=== PATIENT | female | born 1945 | race Caucasian/White ===

== ENCOUNTER 2018-06-30 09:55 | Observation (INO) | payer MEDICARE, OTHER ==
[2018-06-30] MEDS ORDERED: Sodium Chloride 0.9% 1,000 ML IV STA (10:28)
[2018-06-30] MEDS ORDERED: Sodium Chloride 0.9% 1,000 ML ONE (10:39)
[2018-06-30 10:57] LABS: BASO # 0.1 K/uL (0.0-0.2); BASO % 1.1 % (0.0-2.0); EOS # 0.7 K/uL (0.0-0.7); EOS % 13.5 % (0.0-4.0); HEMOGLOBIN 13.7 g/dL (11.0-16.0); LYMPH # 1.2 K/uL (1.0-4.3); LYMPH % 22.5 % (20.0-40.0); MEAN CELL VOLUME 91.9 fL (81.0-99.0); MEAN CORPUSCULAR HEMOGLOBIN 31.4 pg (27.0-31.0); MEAN CORPUSCULAR HGB CONC 34.2 g/dL (33.0-37.0); MEAN PLATELET VOLUME 9.1 fL (7.2-11.7); MONO # 0.4 K/uL (0.0-0.8); NEUT # 2.9 K/uL (1.8-7.0); NEUT % 55.9 % (50.0-75.0); RBC 4.37 Mil/uL (3.80-5.20); RED CELL DISTRIBUTION WIDTH 12.8 % (11.5-14.5); SQUAMOUS EPITHIAL 6 /hpf (0-5); URINE BACTERIA RARE (<OCC); URINE BILIRUBIN NEGATIVE (NEGATIVE); URINE BLOOD 1+ (NEGATIVE); URINE CLARITY Hazy (Clear); URINE COLOR Yellow (YELLOW); URINE GLUCOSE (UA) 3+ mg/dL (Normal); URINE LEUKOCYTE ESTERASE NEG Leu/uL (Negative); URINE PROTEIN 1+ mg/dL (NEGATIVE); URINE UROBILINOGEN NORMAL mg/dL (0.2-1.0); WHITE BLOOD COUNT 5.1 K/uL (4.8-10.8)
[2018-06-30 11:01] LABS: PROTHROMBIN TIME 10.7 SECONDS (9.7-12.2)
[2018-06-30 11:04] LABS: ALB/GLOB RATIO 1.3 (1.0-2.1); ALBUMIN 4.4 g/dL (3.5-5.0); ALT/SGPT 22 U/L (9-52); AST/SGOT 14 U/L (14-36); BLOOD UREA NITROGEN 10 mg/dL (7-17); CALCIUM 8.6 mg/dl (8.6-10.4); GFR NON-AFRICAN AMERICAN > 60; LIPASE 47 U/L (23-300)
[2018-06-30] MEDS ORDERED: Iodixanol 320 mg/ml 150 ml Bottle IV ONE (11:36)
--- NOTE | 2018-06-30 12:37 | C.PDOC ---
History Of Present Illness 72 y/o female presents to ED for evaluation of abdominal pain, nausea, vomiting , and constipation for the last 3 days. Denies fever, chills, urinary symptoms, back pain, or any other associated symptoms at this time. Time Seen by Provider: 06/30/18 10:02 Chief Complaint (Nursing): Abdominal Pain History Per: Patient History/Exam Limitations: no limitations Onset/Duration Of Symptoms: Days Current Symptoms Are (Timing): Still Present Location Of Pain/Discomfort: Diffuse Radiation Of Pain To:: None Quality Of Discomfort: "Pain" Associated Symptoms: Nausea, Vomiting, Constipation. denies: Diarrhea, Loss Of Appetite, Back Pain, Urinary Symptoms Exacerbating Factors: None Alleviating Factors: None Recent travel outside of the [place]: No Additional History Per: Patient Past Medical History Reviewed: Historical Data, Nursing Documentation, Vital Signs Vital Signs: Last Vital Signs Temp 99.0 F 06/30/18 15:50 Pulse 76 06/30/18 15:50 Resp 20 06/30/18 15:50 BP 140/71 06/30/18 15:50 Pulse Ox 99 06/30/18 18:27 - Medical History PMH: Anxiety, Depression, Diabetes (type II), HTN, Hypercholesterolemia Surgical History: Cholecystectomy Family History: States: Unknown Family Hx - Social History Hx Tobacco Use: No Hx Alcohol Use: No Hx Substance Use: No - Immunization History Hx Influenza Vaccination: Yes Hx Pneumococcal Vaccination: Yes Review Of Systems Except As Marked, All Systems Reviewed And Found Negative. Constitutional: Negative for: Fever, Chills Gastrointestinal: Positive for: Nausea, Vomiting, Abdominal Pain, Constipation. Negative for: Diarrhea, Hematemesis Genitourinary: Negative for: Dysuria, Frequency, Hematuria Musculoskeletal: Negative for: Back Pain Physical Exam - Physical Exam Appears: Non-toxic, Other (uncomfortable) Skin: Normal Color, Warm, Dry Head: Atraumatic, Normacephalic Eye(s): bilateral: Normal Inspection, Other (tearful) Oral Mucosa: Moist Cardiovascular: Rhythm Regular Respiratory: Normal Breath Sounds, No Rales, No Rhonchi, No Wheezing Gastrointestinal/Abdominal: Soft, Tenderness (diffuse), No Guarding, No Rebound , No Other (no active vomiting) Back: No CVA Tenderness Extremity: Normal ROM Neurological/Psych: Oriented x3, Normal Speech ED Course And Treatment - Laboratory Results Result Diagrams: 06/30/18 10:43 06/30/18 10:43 O2 Sat by Pulse Oximetry: 99 (RA) Pulse Ox Interpretation: Normal - CT Scan/US Abd & Pelvis CT Other Rad Studies (CT/US): Read By Radiologist, Radiology Report Reviewed CT/US Interpretation: FINDINGS: LOWER THORAX: Heart size within range of normal. No significant pericardial effusion. Small hiatal hernia. Mild passive/ dependent type atelectasis both posterior lower lung marie. There also appears to be some linear scarring in the left lung base including the lingular region and probably in the middle lobe as well. Lung bases otherwise clear without focal consolidation. LIVER: Unremarkable. No gross lesion or ductal dilatation. No obvious hepatic mass or collection seen on this noncontrast study. GALLBLADDER AND BILE DUCTS: Cholecystectomy. PANCREAS: Pancreas appears slightly atrophic and fatty replaced. No pancreatic masses collections or calcifications. SPLEEN: Spleen exhibits normal size and attenuation pattern without mass collection or calcification. ADRENALS: No adrenal lesions. KIDNEYS AND URETERS: Kidneys demonstrate symmetric nephrograms. No evidence of nephrolithiasis or hydronephrosis. BLADDER: Urinary bladder incompletely distended however there is a small amount of contrast material opacifying the urinary bladder. REPRODUCTIVE: Unremarkable. APPENDIX: See Bowel section below . BOWEL: Stomach is distended with air. There are multiple minimally distended air-filled loops of small bowel however no evidence of acute mechanical small bowel obstruction. Status post subtotal colectomy with apparent resection of the transverse and descending as well as sigmoid colon. . Anastomosis again seen in the rectal region. There is a large amount of stool seen at and just distal to the anastomosis consistent with fecal retention/constipation. PERITONEUM: Unremarkable. No fluid collection. No free air. Tiny fat containing umbilical hernia. LYMPH NODES: Unremarkable. No enlarged lymph nodes. VASCULATURE: Unremarkable. No aortic aneurysm. BONES: Multilevel degenerative spondylosis of the lower thoracic and lumbar spine. There are no acute compression fractures no retropulsed fragments. Mild dextroscoliosis centered in the upper lumbar region. OTHER FINDINGS: None. IMPRESSION: Cholecystectomy. There are multiple minimally distended air-filled loops of small bowel however no evidence of acute mechanical small bowel obstruction. Status post subtotal colectomy with apparent resection of the transverse and descending as well as sigmoid colon. . Anastomosis again seen in the rectal region. There is a large amount of stool seen at and just distal to the anastomosis consistent with fecal retention /constipation. Progress Note: While in CT room patient had a syncopal episode. Rapid respond was called. CT didn't show any acute abnormalities, but positive for constipation. Case was d/w Hospitalist director of instruction and patient was accepted to Tele for observation. Medical Decision Making Medical Decision Making: Plan: Blood work Urinalysis Abd & Pelvis CT Toradol Protonix Zofran IV fluids Progress note: On re-eval, pt states pain persists, no relief from Toradol. She requests more pain medication. Notes she does not have true allergy to Morphine, she only felt anxious when taking Morphine previously. Morphine 2mg ordered. Patient had witnessed syncopal episode while in CT room. Labs reviewed. Disposition - Disposition Disposition: HOSPITALIZED Disposition Time: 14:04 Condition: FAIR - Clinical Impression Clinical Impression: Abdominal pain, Constipation, Vomiting, Syncope - PA / PHOTOGRAPHIC RESTORER / Resident Statement MD/DO has reviewed & agrees with the documentation as recorded. - Scribe Statement The provider has reviewed the documentation as recorded by the Scribe KP All medical record entries made by the Scribe were at my direction and personally dictated by me. I have reviewed the chart and agree that the record accurately reflects my personal performance of the history, physical exam, medical decision making, and the department course for this patient. I have also personally directed, reviewed, and agree with the discharge instructions and disposition. Decision To Admit - Pt Status Changed To: Hospital Disposition Of: Observation - . Bed Request Type: Telemetry Admitting Physician: Rena Razo Patient Diagnosis: Abdominal pain, Constipation, Vomiting, Syncope
--- NOTE | 2018-06-30 13:17 | CT ---
Date of service: 06/30/2018 PROCEDURE: CT abdomen pelvis. HISTORY: Abdominal pain, vomiting COMPARISON: Comparison made with prior study 06/06/2016. The TECHNIQUE: Contiguous axial images of the abdomen and pelvis effectively performed without oral or intravenous contrast material reformats generated. . Note that technologist indicates the patient and anxiety and/or contrast reaction, shortly following injection of approximately 20 cc of Visipaque 320 contrast material. Study was terminated patient was stabilized and re-scanned without further injection or complication. Radiation dose: Total exam DLP = 204.3 mGy-cm. This CT exam was performed using one or more of the following dose reduction techniques: Automated exposure control, adjustment of the mA and/or kV according to patient size, and/or use of iterative reconstruction technique.. FINDINGS: LOWER THORAX: Heart size within range of normal. No significant pericardial effusion. Small hiatal hernia. Mild passive/dependent type atelectasis both posterior lower lung marie. There also appears to be some linear scarring in the left lung base including the lingular region and probably in the middle lobe as well. Lung bases otherwise clear without focal consolidation LIVER: Unremarkable. No gross lesion or ductal dilatation. No obvious hepatic mass or collection seen on this noncontrast study. GALLBLADDER AND BILE DUCTS: Cholecystectomy. PANCREAS: Pancreas appears slightly atrophic and fatty replaced. No pancreatic masses collections or calcifications. SPLEEN: Spleen exhibits normal size and attenuation pattern without mass collection or calcification. ADRENALS: No adrenal lesions. KIDNEYS AND URETERS: Kidneys demonstrate symmetric nephrograms. No evidence of nephrolithiasis or hydronephrosis. BLADDER: Urinary bladder incompletely distended however there is a small amount of contrast material opacifying the urinary bladder. REPRODUCTIVE: Unremarkable. APPENDIX: See Bowel section below . BOWEL: Stomach is distended with air. There are multiple minimally distended air-filled loops of small bowel however no evidence of acute mechanical small bowel obstruction. Status post subtotal colectomy with apparent resection of the transverse and descending as well as sigmoid colon. . Anastomosis again seen in the rectal region. There is a large amount of stool seen at and just distal to the anastomosis consistent with fecal retention/constipation. PERITONEUM: Unremarkable. No fluid collection. No free air. Tiny fat containing umbilical hernia. LYMPH NODES: Unremarkable. No enlarged lymph nodes. VASCULATURE: Unremarkable. No aortic aneurysm. BONES: Multilevel degenerative spondylosis of the lower thoracic and lumbar spine. There are no acute compression fractures no retropulsed fragments. Mild dextroscoliosis centered in the upper lumbar region. OTHER FINDINGS: None. IMPRESSION: Cholecystectomy There are multiple minimally distended air-filled loops of small bowel however no evidence of acute mechanical small bowel obstruction. Status post subtotal colectomy with apparent resection of the transverse and descending as well as sigmoid colon. . Anastomosis again seen in the rectal region. There is a large amount of stool seen at and just distal to the anastomosis consistent with fecal retention/constipation.
[2018-06-30] MEDS ORDERED: Glucagon Recombinant 1 mg Inj IM PRN (14:04)
[2018-06-30] MEDS ORDERED: Dextrose 50% SYRINGE Inj (50 ml) IV PRN (14:04)
[2018-06-30 14:09] LABS: CK-MB 1.16 ng/mL (0.0-3.38)
--- NOTE | 2018-06-30 15:04 | PCM.RRT ---
<Sharee Braxton - Last Filed: 06/30/18 18:47> INDEPENDENT BEAUTY CONSULTANT Nurses Assessment - Situation Date: 06/30/18 Time INDEPENDENT BEAUTY CONSULTANT was called: 16:24 INDEPENDENT BEAUTY CONSULTANT Responder Arrival Time:: 16:25 INDEPENDENT BEAUTY CONSULTANT Location:: [facility] [employer]Y CONSULTANT Reason for Call: Change in Mental Status (syncope) INDEPENDENT BEAUTY CONSULTANT Called By: Other Disciplines (marine propulsion technician) - Neurological Status (Select all that apply): Alert, Responsive, Oriented, Verbal, Follows Commands - Constitutional Appears: No Acute Distress, Unkempt, Older Than Stated Age - Head Head Exam: ATRAUMATIC, NORMAL INSPECTION - Eyes Eye Exam: EOMI, Normal appearance - Respiratory Exam Respiratory Exam: Clear to Ausculation Bilateral, NORMAL BREATHING PATTERN - Cardiovascular Exam Cardiovascular Exam: REGULAR RHYTHM, +S1, +S2 - GI/Abdominal Exam GI & Abdominal Exam: Soft, Tenderness (LLQ tenderness), Normal Bowel Sounds. absent: Guarding - Neurological Exam Neurological Exam: Alert, Awake, Oriented x3 Plan - Assessment of Findings&Treatment Plan INDEPENDENT BEAUTY CONSULTANT was called for AMS. During the abdominal/pelvic catscan patient seemed to have a syncope event per marine propulsion technician as patient. B/P 171/92. Upon arrival patient was awake, alert, oriented x3. Patient stated she usually gets anxious. Patient also stated she continued to have pain in the left lower quadrant. After patient's evaluation, the CT continued. Patient was further evaluated by the ER and was admitted to the hospitalist service for syncope and LLQ pain. <Rena Razo - Last Filed: 06/30/18 21:43> [employer]Y CONSULTANT Nurses Assessment - Vital Signs Vital Signs: Rapid Response Vital Sign Blood Pressure 171/92 Attending/Attestation - Attestation I have personally seen and examined this patient.: Yes I have fully participated in the care of the patient.: Yes I have reviewed all pertinent clinical information, including history, physical exam and plan: Yes
--- NOTE | 2018-06-30 15:05 | CP.PCM.HP ---
<BraxtonShareeCoral - Last Filed: 06/30/18 19:51> History of Present Illness - History of Present Illness History of Present Illness: CC: "abdominal pain" HPI: 72 year old female with past medical history of bowel resection and diabetes presents to the ER for abdominal pain. Patient states the pain started about 3 days ago in her LLQ and it is constant. She states she has not had a bowel movement for the past 3 days. She denies radiation of the pain but states it is severe and nothing makes the pain better or worse. She states she feels nauseated and has vomited. She also states she fell about [address] She states she felt unsteady on her feet and fell and hit her knee. She stated a lady on the street helped her up but she did not seek medical care at the time. She denies chest pain, shortness of breath, difficulty breathing, headache, diarrhea, fever or chills. PMD: Dr. Ashley - patient states she has not seen her PMD in years Past Medical History: Diabetes Past Surgical History: bowel resection at [facility] 2017 (patient states she does not know why she underwent that surgery); cholecystectomy Medications: Novolog 10units; Levemir 15 units HS - patient states her she gets her medications from her PMD Allergies: Morphine - she states the medication is strong Family history: Mom - unknown cancer Social History: Lives with daughter (per nurse patient states she lives with a friend); denies alcohol, smoking or illicit drug use. Present on Admission - Present on Admission Any Indicators Present on Admission: No Review of Systems - Constitutional Constitutional: Chills, Fever. absent: Night Sweats, Weight Gain, Weight Loss - EENT Eyes: absent: Blurred Vision - Cardiovascular Cardiovascular: Syncope. absent: Chest Pain, Dyspnea, Leg Edema, Lightheadedness, Palpitations - Respiratory Respiratory: absent: Dyspnea - Gastrointestinal Gastrointestinal: Constipation. absent: Diarrhea, Nausea, Vomiting - Genitourinary Genitourinary: absent: Dysuria - Musculoskeletal Musculoskeletal: Arthralgias. absent: Numbness, Tingling - Neurological Neurological: Dizziness Past Patient History - Past Social History Smoking Status: Never Smoked - CARDIAC Hx Hypercholesterolemia: Yes Hx Hypertension: Yes - ENDOCRINE/METABOLIC Hx Endocrine Disorders: Yes Hx Diabetes Mellitus Type 2: Yes - PSYCHIATRIC Hx Anxiety: Yes Hx Depression: Yes Hx Substance Use: No - SURGICAL HISTORY Hx Cholecystectomy: Yes - ANESTHESIA Hx Anesthesia: Yes Hx Anesthesia Reactions: No Hx Malignant Hyperthermia: No Meds Allergies/Adverse Reactions: Allergies Allergy/AdvReac Type Severity Reaction Status Date / Time morphine AdvReac RASH Verified 07/28/16 14:12 Physical Exam - Constitutional Appears: In Acute Distress, Unkempt, Older Than Stated Age - Head Exam Head Exam: ATRAUMATIC, NORMAL INSPECTION - Eye Exam Eye Exam: EOMI, Normal appearance, PERRL Pupil Exam: NORMAL ACCOMODATION - ENT Exam ENT Exam: Mucous Membranes Dry - Respiratory Exam Respiratory Exam: Clear to Auscultation Bilateral, NORMAL BREATHING PATTERN - Cardiovascular Exam Cardiovascular Exam: REGULAR RHYTHM, +S1, +S2 - GI/Abdominal Exam GI & Abdominal Exam: Normal Bowel Sounds, Soft, Tenderness (LLQ tenderness). absent: Distended, Firm, Guarding - Extremities Exam Extremities exam: Positive for: normal inspection. Negative for: joint swelling , pedal edema, tenderness - Neurological Exam Neurological exam: Alert, CN II-XII Intact, Oriented x3 - Expanded Neurological Exam Expanded Patient oriented to: person, place, time Neuro motor strength exam: Left Upper Extremity: 5, Right Upper Extremity: 5, Left Lower Extremity: 5, Right Lower Extremity: 5 Coma Scale Eye Opening: SPONTANEOUS Coma Scale Motor Response: OBEYS COMMANDS - Psychiatric Exam Psychiatric exam: Anxious - Skin Skin Exam: Normal Color Results - Vital Signs Recent Vital Signs: Last Vital Signs Temp 98.5 F 06/30/18 09:57 Pulse 64 06/30/18 12:50 Resp 24 06/30/18 12:50 BP 120/81 06/30/18 12:50 Pulse Ox 99 06/30/18 14:32 - Labs Result Diagrams: 06/30/18 10:43 06/30/18 10:43 Labs: Laboratory Results - last 24 hr 06/30/18 06/30/18 06/30/18 10:43 10:43 10:43 WBC 5.1 D RBC 4.37 Hgb 13.7 Hct 40.2 MCV 91.9 MCH 31.4 H MCHC 34.2 RDW 12.8 Plt Count 335 MPV 9.1 Neut % (Auto) 55.9 Lymph % (Auto) 22.5 [place] % (Auto) 7.0 Eos % (Auto) 13.5 H Baso % (Auto) 1.1 Neut # (Auto) 2.9 Lymph # (Auto) 1.2 [place] # (Auto) 0.4 Eos # (Auto) 0.7 Baso # (Auto) 0.1 PT 10.7 INR 1.0 APTT 26 Sodium Potassium Chloride Carbon Dioxide Anion Gap BUN Creatinine Est GFR ( Amer) Est GFR (Non-Af Amer) Random Glucose Lactic Acid Calcium Total Bilirubin AST ALT Alkaline Phosphatase Total Creatine Kinase CK-MB (Mass) Troponin I Total Protein Albumin Globulin Albumin/Globulin Ratio Lipase Urine Color Yellow Urine Clarity Hazy Urine pH 5.0 Ur Specific [place] 1.038 H Urine Protein 1+ H Urine Glucose (UA) 3+ H Urine Ketones 1+ H Urine Blood 1+ H Urine Nitrate Negative Urine Bilirubin Negative Urine Urobilinogen Normal Ur Leukocyte Esterase Neg Urine WBC (Auto) 1 Urine RBC (Auto) 1 Ur Squamous Epith Cells 6 H Urine Bacteria Rare 06/30/18 06/30/18 10:43 10:47 WBC RBC Hgb Hct MCV MCH MCHC RDW Plt Count MPV Neut % (Auto) Lymph % (Auto) [place] % (Auto) Eos % (Auto) Baso % (Auto) Neut # (Auto) Lymph # (Auto) [place] # (Auto) Eos # (Auto) Baso # (Auto) PT INR APTT Sodium 138 Potassium 3.6 Chloride 99 Carbon Dioxide 26 Anion Gap 17 BUN 10 Creatinine 0.5 L Est GFR ( Amer) > 60 Est GFR (Non-Af Amer) > 60 Random Glucose 270 H Lactic Acid 0.9 Calcium 8.6 Total Bilirubin 0.6 AST 14 ALT 22 Alkaline Phosphatase 61 Total Creatine Kinase 94 CK-MB (Mass) 1.16 Troponin I < 0.0120 Total Protein 7.7 Albumin 4.4 Globulin 3.3 Albumin/Globulin Ratio 1.3 Lipase 47 Urine Color Urine Clarity Urine pH Ur Specific [place] Urine Protein Urine Glucose (UA) Urine Ketones Urine Blood Urine Nitrate Urine Bilirubin Urine Urobilinogen Ur Leukocyte Esterase Urine WBC (Auto) Urine RBC (Auto) Ur Squamous Epith Cells Urine Bacteria Assessment & Plan - Assessment and Plan (Free Text) Assessment: History of Syncope - NIH Score 0 - Neurology Consult: Dr. Garcia --> help appreciated - WEED COOKING OPERATOR was called on this patient for syncope while patient was in CT - Neuro check q4h - Images * Head CT: Slightly limited motion degraded study. Chronic appearing white matter and basal nuclei ischemic changes. Note that the possibility of a hyperacute infarct not excluded. Clinical correlation recommended. Moderate generalized volume loss. No acute intracranial hemorrhage. * f/u Brain MRI * f/u ECHO * f/u carotid doppler - f/u UDS - ELMER negative; EKG NSR - f/u ELMER x2 LLQ abdominal pain secondary to constipation - General Surgery Consult: Dr. Osorio --> help appreciated - GI Dr. Adorno Consult --> help appreciated - Fleet enema given/Miralax - small bowel movement - Clear Liquid diet as tolerated - Images: * Abd/Pelvis CT: Cholecystectomy. There are multiple minimally distended air- filled loops of small bowel however no evidence of acute mechanical small bowel obstruction. Status post subtotal colectomy with apparent resection of the transverse and descending as well as sigmoid colon. . Anastomosis again seen in the rectal region. There is a large amount of stool seen at and just distal to the anastomosis consistent with fecal retention/constipation. * Catscan was interrupted because the patient had syncopal event as she states she begins to feel anxious * Surgery was completed at [facility] 2017 (will need to get records) History of Diabetes - ISS - low - Accuchecks - Hypoglycemia Protocol - Lisinopril 2.5mg po daily - f/u hA1c, lipid panel, tsh, free t4 Prophylaxis - SCDs - Fall Risk - Physical Therapy - Case Management Case discussed with Dr. Dung Braxton PGY-2 <Rena Razo - Last Filed: 06/30/18 21:48> Results - Vital Signs Recent Vital Signs: Last Vital Signs Temp 99.0 F 06/30/18 15:50 Pulse 76 06/30/18 15:50 Resp 20 06/30/18 15:50 BP 140/71 06/30/18 15:50 Pulse Ox 99 06/30/18 18:29 - Labs Result Diagrams: 06/30/18 10:43 06/30/18 10:43 Labs: Laboratory Results - last 24 hr 06/30/18 06/30/18 06/30/18 10:43 10:43 10:43 WBC 5.1 D RBC 4.37 Hgb 13.7 Hct 40.2 MCV 91.9 MCH 31.4 H MCHC 34.2 RDW 12.8 Plt Count 335 MPV 9.1 Neut % (Auto) 55.9 Lymph % (Auto) 22.5 [place] % (Auto) 7.0 Eos % (Auto) 13.5 H Baso % (Auto) 1.1 Neut # (Auto) 2.9 Lymph # (Auto) 1.2 [place] # (Auto) 0.4 Eos # (Auto) 0.7 Baso # (Auto) 0.1 PT 10.7 INR 1.0 APTT 26 Sodium Potassium Chloride Carbon Dioxide Anion Gap BUN Creatinine Est GFR ( Amer) Est GFR (Non-Af Amer) Random Glucose Lactic Acid Calcium Total Bilirubin AST ALT Alkaline Phosphatase Total Creatine Kinase CK-MB (Mass) Troponin I Total Protein Albumin Globulin Albumin/Globulin Ratio Lipase Urine Color Yellow Urine Clarity Hazy Urine pH 5.0 Ur Specific [place] 1.038 H Urine Protein 1+ H Urine Glucose (UA) 3+ H Urine Ketones 1+ H Urine Blood 1+ H Urine Nitrate Negative Urine Bilirubin Negative Urine Urobilinogen Normal Ur Leukocyte Esterase Neg Urine WBC (Auto) 1 Urine RBC (Auto) 1 Ur Squamous Epith Cells 6 H Urine Bacteria Rare Urine Opiates Screen Urine Methadone Screen Ur Barbiturates Screen Ur Phencyclidine Scrn Ur Amphetamines Screen U Benzodiazepines Scrn U Oth Cocaine Metabols U Cannabinoids Screen 06/30/18 06/30/18 06/30/18 10:43 10:47 16:52 WBC RBC Hgb Hct MCV MCH MCHC RDW Plt Count MPV Neut % (Auto) Lymph % (Auto) [place] % (Auto) Eos % (Auto) Baso % (Auto) Neut # (Auto) Lymph # (Auto) [place] # (Auto) Eos # (Auto) Baso # (Auto) PT INR APTT Sodium 138 Potassium 3.6 Chloride 99 Carbon Dioxide 26 Anion Gap 17 BUN 10 Creatinine 0.5 L Est GFR ( Amer) > 60 Est GFR (Non-Af Amer) > 60 Random Glucose 270 H Lactic Acid 0.9 Calcium 8.6 Total Bilirubin 0.6 AST 14 ALT 22 Alkaline Phosphatase 61 Total Creatine Kinase 94 84 CK-MB (Mass) 1.16 1.49 Troponin I < 0.0120 < 0.0120 Total Protein 7.7 Albumin 4.4 Globulin 3.3 Albumin/Globulin Ratio 1.3 Lipase 47 Urine Color Urine Clarity Urine pH Ur Specific [place] Urine Protein Urine Glucose (UA) Urine Ketones Urine Blood Urine Nitrate Urine Bilirubin Urine Urobilinogen Ur Leukocyte Esterase Urine WBC (Auto) Urine RBC (Auto) Ur Squamous Epith Cells Urine Bacteria Urine Opiates Screen Urine Methadone Screen Ur Barbiturates Screen Ur Phencyclidine Scrn Ur Amphetamines Screen U Benzodiazepines Scrn U Oth Cocaine Metabols U Cannabinoids Screen 06/30/18 17:33 WBC RBC Hgb Hct MCV MCH MCHC RDW Plt Count MPV Neut % (Auto) Lymph % (Auto) [place] % (Auto) Eos % (Auto) Baso % (Auto) Neut # (Auto) Lymph # (Auto) [place] # (Auto) Eos # (Auto) Baso # (Auto) PT INR APTT Sodium Potassium Chloride Carbon Dioxide Anion Gap BUN Creatinine Est GFR ( Amer) Est GFR (Non-Af Amer) Random Glucose Lactic Acid Calcium Total Bilirubin AST ALT Alkaline Phosphatase Total Creatine Kinase CK-MB (Mass) Troponin I Total Protein Albumin Globulin Albumin/Globulin Ratio Lipase Urine Color Urine Clarity Urine pH Ur Specific [place] Urine Protein Urine Glucose (UA) Urine Ketones Urine Blood Urine Nitrate Urine Bilirubin Urine Urobilinogen Ur Leukocyte Esterase Urine WBC (Auto) Urine RBC (Auto) Ur Squamous Epith Cells Urine Bacteria Urine Opiates Screen Positive H Urine Methadone Screen Negative Ur Barbiturates Screen Negative Ur Phencyclidine Scrn Negative Ur Amphetamines Screen Negative U Benzodiazepines Scrn Negative U Oth Cocaine Metabols Positive H U Cannabinoids Screen Negative Attending/Attestation - Attestation I have personally seen and examined this patient.: Yes I have fully participated in the care of the patient.: Yes I have reviewed all pertinent clinical information: Yes Notes (Text): Seen and examined with the resident Patient is complaining of abdominal pain,s/p syncope. As per pt history of recent syncope . Not worked up as an out pt. We will order work up. patient has history of colectomy.CT shows constipation.No Obstruction,has pain and tenderness .We will get surgery and GI consult Assessment and the plan discussed with the resident
--- NOTE | 2018-06-30 16:25 | CT ---
Date of service: 06/30/2018 PROCEDURE: CT HEAD WITHOUT CONTRAST. HISTORY: Dizziness COMPARISON: None available. TECHNIQUE: Axial computed tomography images were obtained through the head/brain without intravenous contrast. Radiation dose: Total exam DLP = 830.12 mGy-cm. This CT exam was performed using one or more of the following dose reduction techniques: Automated exposure control, adjustment of the mA and/or kV according to patient size, and/or use of iterative reconstruction technique. FINDINGS: Study is limited by motion artifact HEMORRHAGE: No acute parenchymal subarachnoid nor extra-axial hemorrhage. BRAIN: Mild diffuse/ confluent chronic periventricular white matter ischemic changes seen extending peripherally into the deep and subcortical white matter both cerebral hemispheres with the changes become more patchy in appearance. . There is a discrete area of low attenuation left anterolateral basal ganglia which is consistent with an age indeterminate infarct. Minor chronic appearing subinsular ischemic changes are also felt to be present bilaterally. Clinical correlation recommended. There also 2 discrete rounded low-attenuation foci at inferior margin left basal ganglia that may represent dilated perivascular spaces versus chronic lacunar type infarcts No obvious parenchymal nor extra-axial mass or collection seen on this noncontrast exam. Moderate generalized volume loss. Vascular calcifications both carotid siphons. VENTRICLES: No obstructive hydrocephalus. CALVARIUM: Calvarium intact. PARANASAL SINUSES: Minimal mucosal thickening seen within a few ethmoid air cells. MASTOID AIR CELLS: Unremarkable as visualized. No inflammatory changes. OTHER FINDINGS: None. IMPRESSION: Slightly limited motion degraded study. Chronic appearing white matter and basal nuclei ischemic changes. Note that the possibility of a hyperacute infarct not excluded. Clinical correlation recommended. Moderate generalized volume loss. No acute intracranial hemorrhage.
[2018-06-30] MEDS: (Novolin R) Insulin Human Regular 100 units/ml vial SC SCH ×2 (17:47→21:27)
[2018-06-30 18:11] LABS: BARBITURATES, UR NEGATIVE (NEGATIVE); BENZODIAZEPINES, UR NEGATIVE (NEGATIVE); PHENCYCLIDINE, UR NEGATIVE (NEGATIVE)
[2018-06-30 18:26] LABS: OPIATES, UR POSITIVE (NEGATIVE)
[2018-06-30 18:51] LABS: CK-MB 1.49 ng/mL (0.0-3.38)
--- NOTE | 2018-06-30 18:57 | CP.PCM.CON ---
History of Present Illness - History of Present Illness History of Present Illness: General surgery consult note for Dr. Paddy Doran, PGY-2 Pt S & E at bedside at 1840 72F w/PSH sig for subtotal colectomy due to "intestines" consulted for LLQ abdominal pain x 3 days. Pain is constant, non radiating, severe. No inciting, alleviating or aggravating factors. Admits to no BM x 2 days, last BM was small /hard, tenesmus, nausea, emesis x "multiple times" (nb, nb-clear liquid), poor appetite. Denies F & C, changes in urinary habits, FLORES, dizziness, CP, SOB, sore throat, cough, other complaints. CT scan of ab w/Cholecystectomy, multiple minimally distended air-filled loops of small bowel however no evidence of acute mechanical small bowel obstruction. Status post subtotal colectomy with apparent resection of the transverse and descending as well as sigmoid colon. Anastomosis again seen in the rectal region. There is a large amount of stool seen at and just distal to the anastomosis consistent with fecal retention/constipation. CT scan aborted 2/2 DIRECTOR OF CATERING for anxiety during exam. Afebrile, no leukocytosis. UDS positive for cocaine. PMH: DM, HTN, HLD, anxiety, depression PSH: Subtotal colectomy (2017, [facility] [place]) w/colonscopy, cholecystectomy All: Morphine (itching) SH: Denies ETOH, tobacco or illicit drug use Review of Systems - Review of Systems All systems: reviewed and no additional remarkable complaints except - Constitutional Constitutional: absent: Chills, Fever, Headache - EENT Eyes: absent: Change in Vision Ears: absent: Dizziness Nose/Mouth/Throat: absent: Sore Throat - Cardiovascular Cardiovascular: Palpitations. absent: Chest Pain - Respiratory Respiratory: absent: Cough - Gastrointestinal Gastrointestinal: Abdominal Pain, Change in Bowel Habits, Constipation, Nausea, Vomiting. absent: Hematemesis, Hematochezia, Melena - Genitourinary Genitourinary: absent: Change in Urinary Stream, Hematuria - Musculoskeletal Musculoskeletal: absent: Numbness, Tingling - Neurological Neurological: absent: Headaches - Psychiatric Psychiatric: Change in Appetite (decreased) Past Patient History - Past Social History Smoking Status: Never Smoked - CARDIAC Hx Hypercholesterolemia: Yes Hx Hypertension: Yes - ENDOCRINE/METABOLIC Hx Endocrine Disorders: Yes Hx Diabetes Mellitus Type 2: Yes - PSYCHIATRIC Hx Anxiety: Yes Hx Depression: Yes Hx Substance Use: No - SURGICAL HISTORY Hx Cholecystectomy: Yes - ANESTHESIA Hx Anesthesia: Yes Hx Anesthesia Reactions: No Hx Malignant Hyperthermia: No Meds Allergies/Adverse Reactions: Allergies Allergy/AdvReac Type Severity Reaction Status Date / Time morphine AdvReac RASH Verified 07/28/16 14:12 - Medications Medications: Current Medications Dextrose (Dextrose 50% Inj) 0 ml IV STAT PRN; Protocol PRN Reason: Hypoglycemia Protocol Dextrose (Glutose 15) 0 gm PO ONCE PRN; Protocol PRN Reason: Hypoglycemia Protocol Glucagon (Glucagen Diagnostic Kit) 0 mg IM STAT PRN; Protocol PRN Reason: Hypoglycemia Protocol Dextrose (Dextrose 5% In Water 1000 Ml) 1,000 mls @ 0 mls/hr IV .Q0M PRN; Protocol; Per Protocol PRN Reason: Hypoglycemia Protocol Insulin Human Regular (Novolin R) 0 unit SC ACHS ALMA PRN Reason: Protocol Last Admin: 06/30/18 17:47 Dose: Not Given Lisinopril (Zestril) 2.5 mg PO DAILY ALMA Polyethylene Glycol (Miralax) 17 gm PO DAILY ALMA Physical Exam - Constitutional Appears: Non-toxic, No Acute Distress - Head Exam Head Exam: ATRAUMATIC, NORMAL INSPECTION, NORMOCEPHALIC - Eye Exam Eye Exam: EOMI, Normal appearance - ENT Exam ENT Exam: Mucous Membranes Moist, Normal Exam - Neck Exam Neck exam: Positive for: Full Rom, Normal Inspection - Respiratory Exam Respiratory Exam: Clear to Auscultation Bilateral, NORMAL BREATHING PATTERN. absent: Chest Wall Tenderness, Rales, Rhonchi, Wheezes - Cardiovascular Exam Cardiovascular Exam: REGULAR RHYTHM, +S1, +S2 - GI/Abdominal Exam GI & Abdominal Exam: Hyperactive Bowel Sounds, Soft, Tenderness (LLQ). absent: Distended, Firm, Hernia Additional comments: well healed midline incision from umbilicus to suprapubic area - Rectal Exam Rectal Exam: absent: Bloody Stool, Hemorrhoids, Fecal Impaction, NORMAL INSPECTION (tender upon PADMINI) - Extremities Exam Extremities exam: Positive for: normal inspection - Neurological Exam Neurological exam: Alert, CN II-XII Intact, Oriented x3 - Psychiatric Exam Psychiatric exam: Normal Affect, Normal Mood - Skin Skin Exam: Dry, Intact, Normal Color, Warm Results - Vital Signs Recent Vital Signs: Last Vital Signs Temp 99.0 F 06/30/18 15:50 Pulse 76 06/30/18 15:50 Resp 20 06/30/18 15:50 BP 140/71 06/30/18 15:50 Pulse Ox 99 06/30/18 18:29 - Labs Result Diagrams: 06/30/18 10:43 06/30/18 10:43 Labs: Laboratory Results - last 24 hr 06/30/18 06/30/18 06/30/18 10:43 10:43 10:43 WBC 5.1 D RBC 4.37 Hgb 13.7 Hct 40.2 MCV 91.9 MCH 31.4 H MCHC 34.2 RDW 12.8 Plt Count 335 MPV 9.1 Neut % (Auto) 55.9 Lymph % (Auto) 22.5 [place] % (Auto) 7.0 Eos % (Auto) 13.5 H Baso % (Auto) 1.1 Neut # (Auto) 2.9 Lymph # (Auto) 1.2 Mineral # (Auto) 0.4 Eos # (Auto) 0.7 Baso # (Auto) 0.1 PT 10.7 INR 1.0 APTT 26 Sodium Potassium Chloride Carbon Dioxide Anion Gap BUN Creatinine Est GFR ( Amer) Est GFR (Non-Af Amer) Random Glucose Lactic Acid Calcium Total Bilirubin AST ALT Alkaline Phosphatase Total Creatine Kinase CK-MB (Mass) Troponin I Total Protein Albumin Globulin Albumin/Globulin Ratio Lipase Urine Color Yellow Urine Clarity Hazy Urine pH 5.0 Ur Specific [place] 1.038 H Urine Protein 1+ H Urine Glucose (UA) 3+ H Urine Ketones 1+ H Urine Blood 1+ H Urine Nitrate Negative Urine Bilirubin Negative Urine Urobilinogen Normal Ur Leukocyte Esterase Neg Urine WBC (Auto) 1 Urine RBC (Auto) 1 Ur Squamous Epith Cells 6 H Urine Bacteria Rare Urine Opiates Screen Urine Methadone Screen Ur Barbiturates Screen Ur Phencyclidine Scrn Ur Amphetamines Screen U Benzodiazepines Scrn U Oth Cocaine Metabols U Cannabinoids Screen 06/30/18 06/30/18 06/30/18 10:43 10:47 16:52 WBC RBC Hgb Hct MCV MCH MCHC RDW Plt Count MPV Neut % (Auto) Lymph % (Auto) [place] % (Auto) Eos % (Auto) Baso % (Auto) Neut # (Auto) Lymph # (Auto) [place] # (Auto) Eos # (Auto) Baso # (Auto) PT INR APTT Sodium 138 Potassium 3.6 Chloride 99 Carbon Dioxide 26 Anion Gap 17 BUN 10 Creatinine 0.5 L Est GFR ( Amer) > 60 Est GFR (Non-Af Amer) > 60 Random Glucose 270 H Lactic Acid 0.9 Calcium 8.6 Total Bilirubin 0.6 AST 14 ALT 22 Alkaline Phosphatase 61 Total Creatine Kinase 94 84 CK-MB (Mass) 1.16 1.49 Troponin I < 0.0120 < 0.0120 Total Protein 7.7 Albumin 4.4 Globulin 3.3 Albumin/Globulin Ratio 1.3 Lipase 47 Urine Color Urine Clarity Urine pH Ur Specific [place] Urine Protein Urine Glucose (UA) Urine Ketones Urine Blood Urine Nitrate Urine Bilirubin Urine Urobilinogen Ur Leukocyte Esterase Urine WBC (Auto) Urine RBC (Auto) Ur Squamous Epith Cells Urine Bacteria Urine Opiates Screen Urine Methadone Screen Ur Barbiturates Screen Ur Phencyclidine Scrn Ur Amphetamines Screen U Benzodiazepines Scrn U Oth Cocaine Metabols U Cannabinoids Screen 06/30/18 17:33 WBC RBC Hgb Hct MCV MCH MCHC RDW Plt Count MPV Neut % (Auto) Lymph % (Auto) [place] % (Auto) Eos % (Auto) Baso % (Auto) Neut # (Auto) Lymph # (Auto) [place] # (Auto) Eos # (Auto) Baso # (Auto) PT INR APTT Sodium Potassium Chloride Carbon Dioxide Anion Gap BUN Creatinine Est GFR ( Amer) Est GFR (Non-Af Amer) Random Glucose Lactic Acid Calcium Total Bilirubin AST ALT Alkaline Phosphatase Total Creatine Kinase CK-MB (Mass) Troponin I Total Protein Albumin Globulin Albumin/Globulin Ratio Lipase Urine Color Urine Clarity Urine pH Ur Specific [place] Urine Protein Urine Glucose (UA) Urine Ketones Urine Blood Urine Nitrate Urine Bilirubin Urine Urobilinogen Ur Leukocyte Esterase Urine WBC (Auto) Urine RBC (Auto) Ur Squamous Epith Cells Urine Bacteria Urine Opiates Screen Positive H Urine Methadone Screen Negative Ur Barbiturates Screen Negative Ur Phencyclidine Scrn Negative Ur Amphetamines Screen Negative U Benzodiazepines Scrn Negative U Oth Cocaine Metabols Positive H U Cannabinoids Screen Negative Assessment & Plan - Assessment and Plan (Free Text) Assessment: 72F w/LLQ ab pain Plan: NPO Enema Dulcolax Colace Monitor for bowel function Pain control PRN Anti-emetic IVF Serial ab exams DW Dr. Devon Doran, PGY-2 - Date & Time Date: 06/30/18 Time: 18:59
[2018-06-30] MEDS ORDERED: Magnesium Hydroxide Susp 30 ml UD PO ONE (19:03)
[2018-06-30] MEDS: Sodium Chloride 0.9% 1,000 ML IV SCH (22:13)
[2018-06-30 23:09] LABS: CK-MB 1.64 ng/mL (0.0-3.38)
[2018-07-01] MEDS: Sodium Chloride 0.9% 1,000 ML IV SCH ×4 (03:00→22:49)
[2018-07-01 06:51] LABS: EOS # 0.7 K/uL (0.0-0.7); EOS % 15.6 % (0.0-4.0); HEMOGLOBIN 12.8 g/dL (11.0-16.0); LYMPH # 1.3 K/uL (1.0-4.3); LYMPH % 28.4 % (20.0-40.0); MEAN CELL VOLUME 92.5 fL (81.0-99.0); MEAN CORPUSCULAR HEMOGLOBIN 32.5 pg (27.0-31.0); MEAN CORPUSCULAR HGB CONC 35.2 g/dL (33.0-37.0); MEAN PLATELET VOLUME 8.6 fL (7.2-11.7); MONO # 0.3 K/uL (0.0-0.8); MONO % 7.6 % (0.0-10.0); NEUT # 2.2 K/uL (1.8-7.0); NEUT % 47.4 % (50.0-75.0); NRBC % 0.1 % (0.0-2.0); RBC 3.92 Mil/uL (3.80-5.20); RED CELL DISTRIBUTION WIDTH 12.7 % (11.5-14.5); WHITE BLOOD COUNT 4.6 K/uL (4.8-10.8)
[2018-07-01 07:16] LABS: ALB/GLOB RATIO 1.3 (1.0-2.1); ALBUMIN 3.6 g/dL (3.5-5.0); ALT/SGPT 29 U/L (9-52); AST/SGOT 17 U/L (14-36); BLOOD UREA NITROGEN 13 mg/dL (7-17); CALCIUM 8.6 mg/dl (8.6-10.4); GFR NON-AFRICAN AMERICAN > 60; HDL CHOLESTEROL 78 mg/dL (30-70)
[2018-07-01 07:23] LABS: LDL CHOLESTEROL 92 mg/dL (0-129)
[2018-07-01] MEDS: (Novolin R) Insulin Human Regular 100 units/ml vial SC SCH ×4 (07:58→22:00)
--- NOTE | 2018-07-01 08:01 | CP.PCM.PN ---
Subjective - Date & Time of Evaluation Date of Evaluation: 07/01/18 Time of Evaluation: 07:59 - Subjective Subjective: General surgery progress note for Dr. Paddy Doran, PGY-2 Pt S & E at bedside at 0710 Pt reports BM x 3 since yesterday, abdominal pain resolved. Passing flatus. Denies N & V, F & C, other complaints. Objective - Vital Signs/Intake and Output Vital Signs (last 24 hours): Temp Pulse Resp BP Pulse Ox 98.3 F 68 20 144/64 96 07/01/18 07:00 07/01/18 07:00 07/01/18 07:00 07/01/18 07:00 07/01/18 07:00 Intake and Output: 07/01/18 07/01/18 06:59 18:59 Intake Total 640 Balance 640 - Medications Medications: Current Medications Dextrose (Dextrose 50% Inj) 0 ml IV STAT PRN; Protocol PRN Reason: Hypoglycemia Protocol Dextrose (Glutose 15) 0 gm PO ONCE PRN; Protocol PRN Reason: Hypoglycemia Protocol Docusate Sodium (Colace) 100 mg PO TID [facility] Glucagon (Glucagen Diagnostic Kit) 0 mg IM STAT PRN; Protocol PRN Reason: Hypoglycemia Protocol Dextrose (Dextrose 5% In Water 1000 Ml) 1,000 mls @ 0 mls/hr IV .Q0M PRN; Protocol; Per Protocol PRN Reason: Hypoglycemia Protocol Sodium Chloride (Sodium Chloride 0.9%) 1,000 mls @ 80 mls/hr IV .[id number] [facility] Last Admin: 07/01/18 03:00 Dose: 80 mls/hr Insulin Human Regular (Novolin R) 0 unit SC ACHS [facility] PRN Reason: Protocol Last Admin: 07/01/18 07:58 Dose: Not Given Ketorolac Tromethamine (Toradol) 15 mg IVP Q6 PRN PRN Reason: Pain, severe (8-10) Last Admin: 06/30/18 19:11 Dose: 15 mg Lisinopril (Zestril) 2.5 mg PO DAILY [facility] Ondansetron HCl (Zofran Inj) 4 mg IVP Q6 PRN PRN Reason: Nausea/Vomiting Polyethylene Glycol (Miralax) 17 gm PO DAILY [facility] - Labs Labs: 07/01/18 06:34 07/01/18 06:34 PT 10.7 SECONDS (9.7-12.2) 06/30/18 10:43 INR 1.0 06/30/18 10:43 APTT 26 SECONDS (21-34) 06/30/18 10:43 - Constitutional Appears: Non-toxic, No Acute Distress - Head Exam Head Exam: ATRAUMATIC, NORMAL INSPECTION, NORMOCEPHALIC - Eye Exam Eye Exam: EOMI, Normal appearance - ENT Exam ENT Exam: Mucous Membranes Moist, Normal Exam - Neck Exam Neck Exam: Full ROM, Normal Inspection - Respiratory Exam Respiratory Exam: NORMAL BREATHING PATTERN - Cardiovascular Exam Cardiovascular Exam: REGULAR RHYTHM, +S1, +S2 - GI/Abdominal Exam GI & Abdominal Exam: Soft. absent: Distended, Firm, Guarding, Rigid, Tenderness , Rebound Additional comments: well healed midline abdominal scar - Neurological Exam Neurological Exam: Alert, CN II-XII Intact, Oriented x3. absent: Awake ( arousable to verbal stimuli) - Psychiatric Exam Psychiatric exam: Normal Affect, Normal Mood - Skin Skin Exam: Dry, Intact, Normal Color, Warm Assessment and Plan - Assessment and Plan (Free Text) Assessment: 72F w/LLQ ab pain- resolved after BMs Plan: Continue bowel regimen No surgical intervention needed Further mgmt as per primary team Please re-consult as needed DW Dr. Devon Doran, PGY-2
[2018-07-01] MEDS: POLYETHYLENE GLYCOL 3350 17 GM/Dose PACKET PO SCH (09:03)
--- NOTE | 2018-07-01 09:20 | CP.PCM.PN ---
Subjective - Date & Time of Evaluation Date of Evaluation: 07/01/18 Time of Evaluation: 09:10 - Subjective Subjective: Patient was seen and examined by me. She was not in any acute distress She explained that she had a BM this morning, denied blood in stool. Says that she still has some left lower quadrant pain however decreased from previous. She reported feeling better after having the BM. No vommitting, + nausea. Currently denied chest pain, denied shortness of breath. She has been using + cocaine, denies injecting. Says she snorts the cocaine When she was being admitted she had an CASE REPAIRER due to syncopal episode. The troponins have been negative HR has been in the 60s to 70s on telemetry. NSR Objective - Vital Signs/Intake and Output Vital Signs (last 24 hours): Temp Pulse Resp BP Pulse Ox 98.3 F 69 20 144/64 96 07/01/18 07:00 07/01/18 07:36 07/01/18 07:00 07/01/18 07:00 07/01/18 08:56 Intake and Output: 07/01/18 07/01/18 06:59 18:59 Intake Total 640 Balance 640 - Medications Medications: Current Medications Dextrose (Dextrose 50% Inj) 0 ml IV STAT PRN; Protocol PRN Reason: Hypoglycemia Protocol Dextrose (Glutose 15) 0 gm PO ONCE PRN; Protocol PRN Reason: Hypoglycemia Protocol Docusate Sodium (Colace) 100 mg PO TID [facility] Last Admin: 07/01/18 09:03 Dose: 100 mg Glucagon (Glucagen Diagnostic Kit) 0 mg IM STAT PRN; Protocol PRN Reason: Hypoglycemia Protocol Dextrose (Dextrose 5% In Water 1000 Ml) 1,000 mls @ 0 mls/hr IV .Q0M PRN; Protocol; Per Protocol PRN Reason: Hypoglycemia Protocol Sodium Chloride (Sodium Chloride 0.9%) 1,000 mls @ 80 mls/hr IV .[id number] [facility] Last Admin: 07/01/18 03:00 Dose: 80 mls/hr Insulin Human Regular (Novolin R) 0 unit SC ACHS [facility] PRN Reason: Protocol Last Admin: 07/01/18 07:58 Dose: Not Given Ketorolac Tromethamine (Toradol) 15 mg IVP Q6 PRN PRN Reason: Pain, severe (8-10) Last Admin: 07/01/18 09:03 Dose: 15 mg Lisinopril (Zestril) 2.5 mg PO DAILY [facility] Last Admin: 07/01/18 09:03 Dose: 2.5 mg Ondansetron HCl (Zofran Inj) 4 mg IVP Q6 PRN PRN Reason: Nausea/Vomiting Polyethylene Glycol (Miralax) 17 gm PO DAILY [facility] Last Admin: 07/01/18 09:03 Dose: 17 gm Potassium Chloride (Potassium Chloride Oral Soln) 20 meq PO ONCE ONE Stop: 07/01/18 09:31 Potassium Chloride (Potassium Chloride Oral Soln) 20 meq PO ONCE ONE Stop: 07/01/18 12:01 - Labs Labs: 07/01/18 06:34 07/01/18 06:34 PT 10.7 SECONDS (9.7-12.2) 06/30/18 10:43 INR 1.0 06/30/18 10:43 APTT 26 SECONDS (21-34) 06/30/18 10:43 - Constitutional Appears: Unkempt, Chronically Ill - Head Exam Head Exam: NORMAL INSPECTION - Eye Exam Eye Exam: EOMI, Normal appearance - ENT Exam ENT Exam: Mucous Membranes Moist - Respiratory Exam Respiratory Exam: Clear to Ausculation Bilateral, NORMAL BREATHING PATTERN - Cardiovascular Exam Cardiovascular Exam: REGULAR RHYTHM - GI/Abdominal Exam GI & Abdominal Exam: Soft, Tenderness. absent: Firm, Guarding, Rigid Additional comments: tenderness LLQ, also has previous surgical scar. - Neurological Exam Neurological Exam: Alert Neuro motor strength exam: Left Upper Extremity: 4, Right Upper Extremity: 4, Left Lower Extremity: 4, Right Lower Extremity: 4 - Psychiatric Exam Psychiatric exam: Depressed, Flat Affect - Skin Skin Exam: Normal Color, Warm Assessment and Plan - Assessment and Plan (Free Text) Assessment: History of Syncope 07/01: Earlier she had an CASE REPAIRER while in CT scan. The CT of her head was stable, pending MRI at this time to evaluate for potential acute infarct Also echo as well. Currently NAD, following commands. It maybe that this is related to polysubstance abuse. The cardiac enzymes negative x 3. Images * Head CT: Slightly limited motion degraded study. Chronic appearing white matter and basal nuclei ischemic changes. Note that the possibility of a hyperacute infarct not excluded. Clinical correlation recommended. Moderate generalized volume loss. No acute intracranial hemorrhage. She should have a repeat TSH as it was on the lower side. The T4 was stable though. LLQ abdominal pain, history of anastomosis. 07/01: She has had BM last night and this morning. Less LLQ abdominal pain now. Remains NPO except for meds. On IVF secondary to constipation - General Surgery Consult: Dr. Osorio --> help appreciated - GI Dr. Adorno Consult --> help appreciated - Fleet enema given/Miralax - small bowel movement - Clear Liquid diet as tolerated - Images: * Abd/Pelvis CT: Cholecystectomy. There are multiple minimally distended air- filled loops of small bowel however no evidence of acute mechanical small bowel obstruction. Status post subtotal colectomy with apparent resection of the transverse and descending as well as sigmoid colon. . Anastomosis again seen in the rectal region. There is a large amount of stool seen at and just distal to the anastomosis consistent with fecal retention/constipation. * Catscan was interrupted because the patient had syncopal event as she states she begins to feel anxious * Surgery was completed at [facility] 2017 (will need to get records) History of Diabetes 07/01: currently accuchecks are in the low 200s On SSI, KENNEY-I Prophylaxis - SCDs - Fall Risk - Physical Therapy - Case Management
[2018-07-01] MEDS ORDERED: Potassium Chloride 20 mEq/15 ml LIQ UD PO ONE ×2 (09:30→12:00)
--- NOTE | 2018-07-01 14:10 | CP.PCM.CON ---
History of Present Illness - History of Present Illness History of Present Illness: Neurology Consultation Note: Mrs. Graham is a 72-year-old woman with a past medical history of DM, HTN, HLD, anxiety, depression, subtotal colectomy (2017, [facility]) w/colonscopy, cholecystectomy, recent cocaine use, who had a syncopal episode yesterday. Neurology was consulted due to change in mental status and syncope. Review of Systems - Review of Systems All systems: reviewed and no additional remarkable complaints except Past Patient History - Past Social History Smoking Status: Never Smoked - CARDIAC Hx Hypercholesterolemia: Yes Hx Hypertension: Yes - ENDOCRINE/METABOLIC Hx Endocrine Disorders: Yes Hx Diabetes Mellitus Type 2: Yes - PSYCHIATRIC Hx Anxiety: Yes Hx Depression: Yes Hx Substance Use: No - SURGICAL HISTORY Hx Cholecystectomy: Yes - ANESTHESIA Hx Anesthesia: Yes Hx Anesthesia Reactions: No Hx Malignant Hyperthermia: No Meds Allergies/Adverse Reactions: Allergies Allergy/AdvReac Type Severity Reaction Status Date / Time morphine AdvReac RASH Verified 07/28/16 14:12 - Medications Medications: Current Medications Dextrose (Dextrose 50% Inj) 0 ml IV STAT PRN; Protocol PRN Reason: Hypoglycemia Protocol Dextrose (Glutose 15) 0 gm PO ONCE PRN; Protocol PRN Reason: Hypoglycemia Protocol Docusate Sodium (Colace) 100 mg PO TID [facility] Last Admin: 07/01/18 13:55 Dose: 100 mg Glucagon (Glucagen Diagnostic Kit) 0 mg IM STAT PRN; Protocol PRN Reason: Hypoglycemia Protocol Dextrose (Dextrose 5% In Water 1000 Ml) 1,000 mls @ 0 mls/hr IV .Q0M PRN; Protocol; Per Protocol PRN Reason: Hypoglycemia Protocol Sodium Chloride (Sodium Chloride 0.9%) 1,000 mls @ 80 mls/hr IV .[id number] [facility] Last Admin: 07/01/18 11:57 Dose: Not Given Insulin Human Regular (Novolin R) 0 unit SC ACHS [facility] PRN Reason: Protocol Last Admin: 07/01/18 11:42 Dose: Not Given Ketorolac Tromethamine (Toradol) 15 mg IVP Q6 PRN PRN Reason: Pain, severe (8-10) Last Admin: 07/01/18 09:03 Dose: 15 mg Lisinopril (Zestril) 2.5 mg PO DAILY [facility] Last Admin: 07/01/18 09:03 Dose: 2.5 mg Morphine Sulfate (Morphine) 2 mg IVP Q3 PRN PRN Reason: FOR SEVERE PAIN 8-10 Last Admin: 07/01/18 12:23 Dose: 2 mg Ondansetron HCl (Zofran Inj) 4 mg IVP Q6 PRN PRN Reason: Nausea/Vomiting Last Admin: 07/01/18 13:54 Dose: 4 mg Polyethylene Glycol (Miralax) 17 gm PO DAILY [facility] Last Admin: 07/01/18 09:03 Dose: 17 gm Physical Exam - Neurological Exam Neurological exam: Alert, CN II-XII Intact, Normal Gait, Oriented x3, Reflexes Normal Results - Vital Signs Recent Vital Signs: Last Vital Signs Temp 98.3 F 07/01/18 07:00 Pulse 74 07/01/18 12:38 Resp 20 07/01/18 07:00 BP 144/64 07/01/18 07:00 Pulse Ox 96 07/01/18 08:56 - Labs Result Diagrams: 07/01/18 06:34 07/01/18 06:34 Labs: Laboratory Results - last 24 hr 06/30/18 06/30/18 06/30/18 10:43 16:28 16:52 WBC RBC Hgb Hct MCV MCH MCHC RDW Plt Count MPV Neut % (Auto) Lymph % (Auto) [place] % (Auto) Eos % (Auto) Baso % (Auto) Neut # (Auto) Lymph # (Auto) [place] # (Auto) Eos # (Auto) Baso # (Auto) Sodium Potassium Chloride Carbon Dioxide Anion Gap BUN Creatinine Est GFR ( Amer) Est GFR (Non-Af Amer) POC Glucose (mg/dL) 202 H Random Glucose Hemoglobin A1c Calcium Phosphorus Magnesium Total Bilirubin AST ALT Alkaline Phosphatase Total Creatine Kinase 84 CK-MB (Mass) 1.16 1.49 Troponin I < 0.0120 < 0.0120 Total Protein Albumin Globulin Albumin/Globulin Ratio Triglycerides Cholesterol LDL Cholesterol Direct HDL Cholesterol Free T4 TSH 3rd Generation Urine Opiates Screen Urine Methadone Screen Ur Barbiturates Screen Ur Phencyclidine Scrn Ur Amphetamines Screen U Benzodiazepines Scrn U Oth Cocaine Metabols U Cannabinoids Screen 06/30/18 06/30/18 06/30/18 17:33 21:02 22:42 WBC RBC Hgb Hct MCV MCH MCHC RDW Plt Count MPV Neut % (Auto) Lymph % (Auto) [place] % (Auto) Eos % (Auto) Baso % (Auto) Neut # (Auto) Lymph # (Auto) [place] # (Auto) Eos # (Auto) Baso # (Auto) Sodium Potassium Chloride Carbon Dioxide Anion Gap BUN Creatinine Est GFR ( Amer) Est GFR (Non-Af Amer) POC Glucose (mg/dL) 202 H Random Glucose Hemoglobin A1c Calcium Phosphorus Magnesium Total Bilirubin AST ALT Alkaline Phosphatase Total Creatine Kinase 82 CK-MB (Mass) 1.64 Troponin I < 0.0120 Total Protein Albumin Globulin Albumin/Globulin Ratio Triglycerides Cholesterol LDL Cholesterol Direct HDL Cholesterol Free T4 TSH 3rd Generation Urine Opiates Screen Positive H Urine Methadone Screen Negative Ur Barbiturates Screen Negative Ur Phencyclidine Scrn Negative Ur Amphetamines Screen Negative U Benzodiazepines Scrn Negative U Oth Cocaine Metabols Positive H U Cannabinoids Screen Negative 07/01/18 07/01/18 07/01/18 06:15 06:34 06:34 WBC 4.6 L RBC 3.92 Hgb 12.8 Hct 36.3 MCV 92.5 MCH 32.5 H MCHC 35.2 RDW 12.7 Plt Count 304 MPV 8.6 Neut % (Auto) 47.4 L Lymph % (Auto) 28.4 [place] % (Auto) 7.6 Eos % (Auto) 15.6 H Baso % (Auto) 1.0 Neut # (Auto) 2.2 Lymph # (Auto) 1.3 [place] # (Auto) 0.3 Eos # (Auto) 0.7 Baso # (Auto) 0.0 Sodium 141 Potassium 3.0 L Chloride 104 Carbon Dioxide 27 Anion Gap 13 BUN 13 Creatinine 0.6 L Est GFR ( Amer) > 60 Est GFR (Non-Af Amer) > 60 POC Glucose (mg/dL) 148 H Random Glucose 152 H Hemoglobin A1c Calcium 8.6 Phosphorus 3.0 Magnesium 2.4 H Total Bilirubin 0.5 AST 17 ALT 29 Alkaline Phosphatase 50 Total Creatine Kinase CK-MB (Mass) Troponin I Total Protein 6.5 Albumin 3.6 Globulin 2.9 Albumin/Globulin Ratio 1.3 Triglycerides 93 Cholesterol 202 H LDL Cholesterol Direct 92 HDL Cholesterol 78 H Free T4 TSH 3rd Generation 0.08 L Urine Opiates Screen Urine Methadone Screen Ur Barbiturates Screen Ur Phencyclidine Scrn Ur Amphetamines Screen U Benzodiazepines Scrn U Oth Cocaine Metabols U Cannabinoids Screen 07/01/18 07/01/18 07/01/18 06:34 06:34 11:04 WBC RBC Hgb Hct MCV MCH MCHC RDW Plt Count MPV Neut % (Auto) Lymph % (Auto) [place] % (Auto) Eos % (Auto) Baso % (Auto) Neut # (Auto) Lymph # (Auto) [place] # (Auto) Eos # (Auto) Baso # (Auto) Sodium Potassium Chloride Carbon Dioxide Anion Gap BUN Creatinine Est GFR ( Amer) Est GFR (Non-Af Amer) POC Glucose (mg/dL) 160 H Random Glucose Hemoglobin A1c 10.8 H Calcium Phosphorus Magnesium Total Bilirubin AST ALT Alkaline Phosphatase Total Creatine Kinase CK-MB (Mass) Troponin I Total Protein Albumin Globulin Albumin/Globulin Ratio Triglycerides Cholesterol LDL Cholesterol Direct HDL Cholesterol Free T4 1.32 TSH 3rd Generation Urine Opiates Screen Urine Methadone Screen Ur Barbiturates Screen Ur Phencyclidine Scrn Ur Amphetamines Screen U Benzodiazepines Scrn U Oth Cocaine Metabols U Cannabinoids Screen Assessment & Plan (1) Syncope Assessment and Plan: May be due to dehydration, drug use or vasovagal. Non-focal neurological exam. Consider obtaining CTA of the head/neck. Continue cardiac work-up. Thank you. Status: Acute Priority: Medium
--- NOTE | 2018-07-01 18:44 | CP.PCM.CON ---
History of Present Illness - History of Present Illness History of Present Illness: GI Fellow PGY4, Consult note Patient is a 72F with hx of DM, HLD, cocaine use, psych disorder and previous subtotal colectomy for unknown reason presenting with LLQ pain. She is an unrealiable source of history. Patient was sleeping upon my entrance, appearing very comfortable. She looks disheveled, hair out of place and multiple missing teeth. When I woke her, and saw who I was she started yelling in pain, rolling form side to side. She states pain is in LLQ, it has improved since BM today. When asked if she had cancer, she says no. When asked if she had bowel obstruction she says yes. PMHx - see above PSHx - see above FMHx - denies SocHx - unclear, but denies current use of tobacco, drugs, alcohol. Past Patient History - Past Social History Smoking Status: Never Smoked - CARDIAC Hx Hypercholesterolemia: Yes Hx Hypertension: Yes - ENDOCRINE/METABOLIC Hx Endocrine Disorders: Yes Hx Diabetes Mellitus Type 2: Yes - PSYCHIATRIC Hx Anxiety: Yes Hx Depression: Yes Hx Substance Use: No - SURGICAL HISTORY Hx Cholecystectomy: Yes - ANESTHESIA Hx Anesthesia: Yes Hx Anesthesia Reactions: No Hx Malignant Hyperthermia: No Meds Allergies/Adverse Reactions: Allergies Allergy/AdvReac Type Severity Reaction Status Date / Time morphine AdvReac RASH Verified 07/28/16 14:12 - Medications Medications: Current Medications Dextrose (Dextrose 50% Inj) 0 ml IV STAT PRN; Protocol PRN Reason: Hypoglycemia Protocol Dextrose (Glutose 15) 0 gm PO ONCE PRN; Protocol PRN Reason: Hypoglycemia Protocol Docusate Sodium (Colace) 100 mg PO TID [facility] Last Admin: 07/01/18 13:55 Dose: 100 mg Glucagon (Glucagen Diagnostic Kit) 0 mg IM STAT PRN; Protocol PRN Reason: Hypoglycemia Protocol Dextrose (Dextrose 5% In Water 1000 Ml) 1,000 mls @ 0 mls/hr IV .Q0M PRN; Protocol; Per Protocol PRN Reason: Hypoglycemia Protocol Sodium Chloride (Sodium Chloride 0.9%) 1,000 mls @ 80 mls/hr IV .[id number] [facility] Last Admin: 07/01/18 14:43 Dose: 80 mls/hr Insulin Human Regular (Novolin R) 0 unit SC ACHS [facility] PRN Reason: Protocol Last Admin: 07/01/18 18:09 Dose: 1 u Ketorolac Tromethamine (Toradol) 15 mg IVP Q6 PRN PRN Reason: Pain, severe (8-10) Lisinopril (Zestril) 2.5 mg PO DAILY [facility] Last Admin: 07/01/18 09:03 Dose: 2.5 mg Morphine Sulfate (Morphine) 2 mg IVP Q3 PRN PRN Reason: FOR SEVERE PAIN 8-10 Last Admin: 07/01/18 12:23 Dose: 2 mg Ondansetron HCl (Zofran Inj) 4 mg IVP Q6 PRN PRN Reason: Nausea/Vomiting Last Admin: 07/01/18 13:54 Dose: 4 mg Polyethylene Glycol (Miralax) 17 gm PO DAILY [facility] Last Admin: 07/01/18 09:03 Dose: 17 gm Physical Exam - Constitutional Appears: Non-toxic, No Acute Distress, Agitated, Confused, Chronically Ill - Head Exam Head Exam: NORMAL INSPECTION - Eye Exam Eye Exam: EOMI - ENT Exam ENT Exam: Mucous Membranes Moist - Respiratory Exam Respiratory Exam: Clear to Auscultation Bilateral, NORMAL BREATHING PATTERN. absent: Wheezes - Cardiovascular Exam Cardiovascular Exam: REGULAR RHYTHM - GI/Abdominal Exam GI & Abdominal Exam: Normal Bowel Sounds, Soft, Tenderness. absent: Organomegaly - Extremities Exam Extremities exam: Positive for: normal inspection - Neurological Exam Neurological exam: Alert, CN II-XII Intact - Psychiatric Exam Psychiatric exam: Agitated, Manic - Skin Skin Exam: Dry, Normal Color Results - Vital Signs Recent Vital Signs: Last Vital Signs Temp 98.5 F 07/01/18 15:00 Pulse 78 07/01/18 15:00 Resp 20 07/01/18 15:00 BP 158/68 H 07/01/18 15:00 Pulse Ox 97 07/01/18 15:00 - Labs Result Diagrams: 07/01/18 06:34 07/01/18 06:34 Labs: Laboratory Results - last 24 hr 06/30/18 06/30/18 06/30/18 16:28 16:52 21:02 WBC RBC Hgb Hct MCV MCH MCHC RDW Plt Count MPV Neut % (Auto) Lymph % (Auto) [place] % (Auto) Eos % (Auto) Baso % (Auto) Neut # (Auto) Lymph # (Auto) [place] # (Auto) Eos # (Auto) Baso # (Auto) Sodium Potassium Chloride Carbon Dioxide Anion Gap BUN Creatinine Est GFR ( Amer) Est GFR (Non-Af Amer) POC Glucose (mg/dL) 202 H 202 H Random Glucose Hemoglobin A1c Calcium Phosphorus Magnesium Total Bilirubin AST ALT Alkaline Phosphatase Total Creatine Kinase CK-MB (Mass) 1.49 Troponin I < 0.0120 Total Protein Albumin Globulin Albumin/Globulin Ratio Triglycerides Cholesterol LDL Cholesterol Direct HDL Cholesterol Free T4 TSH 3rd Generation 06/30/18 07/01/18 07/01/18 22:42 06:15 06:34 WBC 4.6 L RBC 3.92 Hgb 12.8 Hct 36.3 MCV 92.5 MCH 32.5 H MCHC 35.2 RDW 12.7 Plt Count 304 MPV 8.6 Neut % (Auto) 47.4 L Lymph % (Auto) 28.4 [place] % (Auto) 7.6 Eos % (Auto) 15.6 H Baso % (Auto) 1.0 Neut # (Auto) 2.2 Lymph # (Auto) 1.3 [place] # (Auto) 0.3 Eos # (Auto) 0.7 Baso # (Auto) 0.0 Sodium Potassium Chloride Carbon Dioxide Anion Gap BUN Creatinine Est GFR ( Amer) Est GFR (Non-Af Amer) POC Glucose (mg/dL) 148 H Random Glucose Hemoglobin A1c Calcium Phosphorus Magnesium Total Bilirubin AST ALT Alkaline Phosphatase Total Creatine Kinase 82 CK-MB (Mass) 1.64 Troponin I < 0.0120 Total Protein Albumin Globulin Albumin/Globulin Ratio Triglycerides Cholesterol LDL Cholesterol Direct HDL Cholesterol Free T4 TSH 3rd Generation 07/01/18 07/01/18 07/01/18 06:34 06:34 06:34 WBC RBC Hgb Hct MCV MCH MCHC RDW Plt Count MPV Neut % (Auto) Lymph % (Auto) [place] % (Auto) Eos % (Auto) Baso % (Auto) Neut # (Auto) Lymph # (Auto) [place] # (Auto) Eos # (Auto) Baso # (Auto) Sodium 141 Potassium 3.0 L Chloride 104 Carbon Dioxide 27 Anion Gap 13 BUN 13 Creatinine 0.6 L Est GFR ( Amer) > 60 Est GFR (Non-Af Amer) > 60 POC Glucose (mg/dL) Random Glucose 152 H Hemoglobin A1c 10.8 H Calcium 8.6 Phosphorus 3.0 Magnesium 2.4 H Total Bilirubin 0.5 AST 17 ALT 29 Alkaline Phosphatase 50 Total Creatine Kinase CK-MB (Mass) Troponin I Total Protein 6.5 Albumin 3.6 Globulin 2.9 Albumin/Globulin Ratio 1.3 Triglycerides 93 Cholesterol 202 H LDL Cholesterol Direct 92 HDL Cholesterol 78 H Free T4 1.32 TSH 3rd Generation 0.08 L 07/01/18 07/01/18 07/01/18 11:04 13:47 16:27 WBC RBC Hgb Hct MCV MCH MCHC RDW Plt Count MPV Neut % (Auto) Lymph % (Auto) [place] % (Auto) Eos % (Auto) Baso % (Auto) Neut # (Auto) Lymph # (Auto) [place] # (Auto) Eos # (Auto) Baso # (Auto) Sodium Potassium Chloride Carbon Dioxide Anion Gap BUN Creatinine Est GFR ( Amer) Est GFR (Non-Af Amer) POC Glucose (mg/dL) 160 H 156 H Random Glucose Hemoglobin A1c Calcium Phosphorus Magnesium Total Bilirubin AST ALT Alkaline Phosphatase Total Creatine Kinase CK-MB (Mass) Troponin I Total Protein Albumin Globulin Albumin/Globulin Ratio Triglycerides Cholesterol LDL Cholesterol Direct HDL Cholesterol Free T4 TSH 3rd Generation 0.03 L Assessment & Plan - Assessment and Plan (Free Text) Assessment: 72F with hx of DM, HLD, cocaine use, psych disorder and previous subtotal colectomy for unknown reason presenting with LLQ pain. #LLQ pain #Fecal impaction #DM #HLD #Substance abuse disorder #Psychiatric disorder PLAN: -Continue bowel regimen -Defer diet to surgical team. -She should have follow up colonoscopy as outpatient to evaluate anastomosis. -Lactic acid negative -Recommend Psychiatric consult. - Date & Time Date: 07/01/18 Time: 18:45
[2018-07-02 07:31] LABS: BASO # 0.1 K/uL (0.0-0.2); BASO % 1.4 % (0.0-2.0); EOS % 0.4 % (0.0-4.0); HEMOGLOBIN 13.2 g/dL (11.0-16.0); LYMPH # 0.9 K/uL (1.0-4.3); MEAN CELL VOLUME 92.8 fL (81.0-99.0); MEAN CORPUSCULAR HEMOGLOBIN 32.3 pg (27.0-31.0); MEAN CORPUSCULAR HGB CONC 34.8 g/dL (33.0-37.0); MEAN PLATELET VOLUME 9.5 fL (7.2-11.7); MONO # 0.2 K/uL (0.0-0.8); MONO % 2.8 % (0.0-10.0); NEUT # 5.1 K/uL (1.8-7.0); NEUT % 81.4 % (50.0-75.0); RBC 4.09 Mil/uL (3.80-5.20); RED CELL DISTRIBUTION WIDTH 13.1 % (11.5-14.5); WHITE BLOOD COUNT 6.2 K/uL (4.8-10.8)
[2018-07-02] MEDS: (Novolin R) Insulin Human Regular 100 units/ml vial SC SCH ×3 (07:54→17:32)
[2018-07-02 08:02] LABS: ALB/GLOB RATIO 1.5 (1.0-2.1); ALBUMIN 4.4 g/dL (3.5-5.0); ALT/SGPT 23 U/L (9-52); AST/SGOT 24 U/L (14-36); BLOOD UREA NITROGEN 11 mg/dL (7-17); GFR NON-AFRICAN AMERICAN > 60
[2018-07-02] MEDS: POLYETHYLENE GLYCOL 3350 17 GM/Dose PACKET PO SCH (10:11)
[2018-07-02] MEDS: Sodium Chloride 0.9% 1,000 ML IV SCH (11:48)
--- NOTE | 2018-07-02 13:09 | CP.PCM.PN ---
<Cara Chavez - Last Filed: 07/02/18 13:16> Subjective - Date & Time of Evaluation Date of Evaluation: 07/02/18 Time of Evaluation: 13:06 - Subjective Subjective: Gastroenterology Fellow/PGY6 Progress Note Patient resting comfortably prior to examination. On questioning, endorses 10/ 10 left urban-abdomen pain. Remains NPO without vomiting. Admits to two episodes of soft stools this morning. A 12-point review of systems negative except for as above. Objective - Vital Signs/Intake and Output Vital Signs (last 24 hours): Temp Pulse Resp BP Pulse Ox 98.4 F 81 18 137/69 96 07/02/18 07:30 07/02/18 07:43 07/02/18 07:30 07/02/18 07:30 07/02/18 07:30 Intake and Output: 07/02/18 07/02/18 06:59 18:59 Intake Total 640 Balance 640 - Medications Medications: Current Medications Dextrose (Dextrose 50% Inj) 0 ml IV STAT PRN; Protocol PRN Reason: Hypoglycemia Protocol Dextrose (Glutose 15) 0 gm PO ONCE PRN; Protocol PRN Reason: Hypoglycemia Protocol Docusate Sodium (Colace) 100 mg PO TID [facility] Last Admin: 07/02/18 10:11 Dose: 100 mg Glucagon (Glucagen Diagnostic Kit) 0 mg IM STAT PRN; Protocol PRN Reason: Hypoglycemia Protocol Dextrose (Dextrose 5% In Water 1000 Ml) 1,000 mls @ 0 mls/hr IV .Q0M PRN; Protocol; Per Protocol PRN Reason: Hypoglycemia Protocol Sodium Chloride (Sodium Chloride 0.9%) 1,000 mls @ 80 mls/hr IV .[id number] [facility] Last Admin: 07/02/18 11:48 Dose: Not Given Insulin Human Regular (Novolin R) 0 unit SC ACHS [facility] PRN Reason: Protocol Last Admin: 07/02/18 11:48 Dose: Not Given Ketorolac Tromethamine (Toradol) 15 mg IVP Q6 PRN PRN Reason: Pain, severe (8-10) Last Admin: 07/01/18 22:35 Dose: 15 mg Lisinopril (Zestril) 2.5 mg PO DAILY [facility] Last Admin: 07/02/18 10:11 Dose: 2.5 mg Ondansetron HCl (Zofran Inj) 4 mg IVP Q6 PRN PRN Reason: Nausea/Vomiting Last Admin: 07/02/18 02:27 Dose: 4 mg Polyethylene Glycol (Miralax) 17 gm PO DAILY [facility] Last Admin: 07/02/18 10:11 Dose: 17 gm - Labs Labs: 07/02/18 07:09 07/02/18 07:09 PT 10.7 SECONDS (9.7-12.2) 06/30/18 10:43 INR 1.0 06/30/18 10:43 APTT 26 SECONDS (21-34) 06/30/18 10:43 - Constitutional Appears: Non-toxic, No Acute Distress - Head Exam Head Exam: ATRAUMATIC, NORMOCEPHALIC - Eye Exam Eye Exam: EOMI, PERRL Pupil Exam: PERRL. absent: Miosis, Mydriatic - ENT Exam ENT Exam: Mucous Membranes Moist, Normal Oropharynx - Neck Exam Neck Exam: Full ROM, Normal Inspection - Respiratory Exam Respiratory Exam: Clear to Ausculation Bilateral. absent: Rales, Rhonchi, Wheezes - Cardiovascular Exam Cardiovascular Exam: RRR, +S1, +S2. absent: Rubs - GI/Abdominal Exam GI & Abdominal Exam: Guarding, Soft, Tenderness, Normal Bowel Sounds. absent: Distended, Firm, Rigid, Organomegaly, Rebound Additional comments: diffuse discomfort produced to minimal palpation - Extremities Exam Extremities Exam: Normal Inspection. absent: Pedal Edema - Neurological Exam Neurological Exam: Alert, Awake, Oriented x3 - Psychiatric Exam Psychiatric exam: Normal Affect, Normal Mood - Skin Skin Exam: Dry, Intact, Normal Color, Warm Assessment and Plan - Assessment and Plan (Free Text) Assessment: 72 year old female with PMH of subtotal colectomy with rectal anastomosis 2017, cocaine abuse, Diabetes, and HLD presenting with abdominal pain. Active treatment of abdominal pain likely secondary to constipation with fecal retention noted distal to rectal anastomosis and cocaine abuse. Prior colonoscopy endorsed 2017 at time of subtotal colectomy with unknown results. Plan: -counselled on cocaine cessation as possible component of pain response -ordered full liquid diet, advance as tolerated -continue Colace/Miralax -recommend outpatient colonoscopy to evaluate anastomosis -will follow clinical course to monitor for pain improvement, daily bowel movement, and tolerating diet <Kyree,Christian Y - Last Filed: 07/02/18 17:20> Objective - Vital Signs/Intake and Output Vital Signs (last 24 hours): Temp Pulse Resp BP Pulse Ox 99.0 F 97 H 20 152/65 H 97 07/02/18 15:04 07/02/18 15:04 07/02/18 15:04 07/02/18 15:04 07/02/18 15:04 Intake and Output: 07/02/18 07/02/18 06:59 18:59 Intake Total 640 Balance 640 - Medications Medications: Current Medications Dextrose (Dextrose 50% Inj) 0 ml IV STAT PRN; Protocol PRN Reason: Hypoglycemia Protocol Dextrose (Glutose 15) 0 gm PO ONCE PRN; Protocol PRN Reason: Hypoglycemia Protocol Docusate Sodium (Colace) 100 mg PO TID [facility] Last Admin: 07/02/18 13:21 Dose: 100 mg Glucagon (Glucagen Diagnostic Kit) 0 mg IM STAT PRN; Protocol PRN Reason: Hypoglycemia Protocol Dextrose (Dextrose 5% In Water 1000 Ml) 1,000 mls @ 0 mls/hr IV .Q0M PRN; Protocol; Per Protocol PRN Reason: Hypoglycemia Protocol Sodium Chloride (Sodium Chloride 0.9%) 1,000 mls @ 80 mls/hr IV .[id number] [facility] Last Admin: 07/02/18 11:48 Dose: Not Given Insulin Human Regular (Novolin R) 0 unit SC ACHS [facility] PRN Reason: Protocol Last Admin: 07/02/18 11:48 Dose: Not Given Ketorolac Tromethamine (Toradol) 15 mg IVP Q6 PRN PRN Reason: Pain, severe (8-10) Last Admin: 07/02/18 13:53 Dose: 15 mg Lisinopril (Zestril) 2.5 mg PO DAILY [facility] Last Admin: 07/02/18 10:11 Dose: 2.5 mg Ondansetron HCl (Zofran Inj) 4 mg IVP Q6 PRN PRN Reason: Nausea/Vomiting Last Admin: 07/02/18 16:18 Dose: 4 mg Polyethylene Glycol (Miralax) 17 gm PO DAILY [facility] Last Admin: 07/02/18 10:11 Dose: 17 gm - Labs Labs: 07/02/18 07:09 07/02/18 07:09 PT 10.7 SECONDS (9.7-12.2) 06/30/18 10:43 INR 1.0 06/30/18 10:43 APTT 26 SECONDS (21-34) 06/30/18 10:43 Attending/Attestation - Attestation I have personally seen and examined this patient.: Yes I have fully participated in the care of the patient.: Yes I have reviewed all pertinent clinical information, including history, physical exam and plan: Yes Notes (Text): 07/02/18 17:17 I have seen and examined patient with GI fellow. No acute events overnight, she is seen resting in bed comfortably. She had two loose bowel movements this morning and denies nausea, vomiting, fever/chills. Tolerating PO diet without difficulty. Review of vitals from today are normal. DM Substance abuse History of colon resection - reason unclear Abdominal pain, constipation - Diet as tolerated - Maintain bowel regimen to prevent recurrent constipation - Substance abuse cessation counseling - Patient would benefit from outpatient colonoscopy for further evaluation of colon resection - No further planned GI intervention, will sign off case. Please reconsult as necessary, thank you.
--- NOTE | 2018-07-02 14:22 | CP.PCM.DIS ---
<AgapitoSolanges M - Last Filed: 07/02/18 19:14> Provider - Provider Date of Admission: 06/30/18 13:59 Attending physician: Jackson Pena DO Primary care physician: Dr. Ashley Consults: Dr. Adorno (GI), Dr. Garcia (Neuro) Time Spent in preparation of Discharge (in minutes): 45 Diagnosis - Discharge Diagnosis (1) Gastritis Status: Acute Hospital Course - Lab Results Lab Results: Micro Results 06/30/18 10:43 Urine Urine Culture - Final Klebsiella Pneumoniae Ssp Pneu Most Recent Lab Values WBC 6.2 K/uL (4.8-10.8) 07/02/18 07:09 RBC 4.09 Mil/uL (3.80-5.20) 07/02/18 07:09 Hgb 13.2 g/dL (11.0-16.0) 07/02/18 07:09 Hct 37.9 % (34.0-47.0) 07/02/18 07:09 MCV 92.8 fL (81.0-99.0) 07/02/18 07:09 MCH 32.3 pg (27.0-31.0) H 07/02/18 07:09 MCHC 34.8 g/dL (33.0-37.0) 07/02/18 07:09 RDW 13.1 % (11.5-14.5) 07/02/18 07:09 Plt Count 320 K/uL (130-400) 07/02/18 07:09 MPV 9.5 fL (7.2-11.7) 07/02/18 07:09 Neut % (Auto) 81.4 % (50.0-75.0) H 07/02/18 07:09 Lymph % (Auto) 14.0 % (20.0-40.0) L 07/02/18 07:09 [place] % (Auto) 2.8 % (0.0-10.0) 07/02/18 07:09 Eos % (Auto) 0.4 % (0.0-4.0) 07/02/18 07:09 Baso % (Auto) 1.4 % (0.0-2.0) 07/02/18 07:09 Neut # (Auto) 5.1 K/uL (1.8-7.0) 07/02/18 07:09 Lymph # (Auto) 0.9 K/uL (1.0-4.3) L 07/02/18 07:09 [place] # (Auto) 0.2 K/uL (0.0-0.8) 07/02/18 07:09 Eos # (Auto) 0.0 K/uL (0.0-0.7) 07/02/18 07:09 Baso # (Auto) 0.1 K/uL (0.0-0.2) 07/02/18 07:09 PT 10.7 SECONDS (9.7-12.2) 06/30/18 10:43 INR 1.0 06/30/18 10:43 APTT 26 SECONDS (21-34) 06/30/18 10:43 Sodium 139 mmol/L (132-148) 07/02/18 07:09 Potassium 3.7 mmol/L (3.6-5.2) 07/02/18 07:09 Chloride 104 mmol/L (98-107) 07/02/18 07:09 Carbon Dioxide 18 mmol/L (22-30) L 07/02/18 07:09 Anion Gap 21 (10-20) H 07/02/18 07:09 BUN 11 mg/dL (7-17) 07/02/18 07:09 Creatinine 0.5 mg/dL (0.7-1.2) L 07/02/18 07:09 Est GFR ( Amer) > 60 07/02/18 07:09 Est GFR (Non-Af Amer) > 60 07/02/18 07:09 POC Glucose (mg/dL) 120 mg/dL (65-110) H 07/02/18 10:56 Random Glucose 138 mg/dL (65-105) H 07/02/18 07:09 Hemoglobin A1c 10.8 % (4.2-6.5) H 07/01/18 06:34 Lactic Acid 0.9 mmol/L (0.7-2.1) 06/30/18 10:47 Calcium 9.0 mg/dl (8.6-10.4) 07/02/18 07:09 Phosphorus 3.4 mg/dL (2.5-4.5) 07/02/18 07:09 Magnesium 1.8 mg/dL (1.6-2.3) 07/02/18 07:09 Total Bilirubin 0.5 mg/dL (0.2-1.3) 07/02/18 07:09 AST 24 U/L (14-36) 07/02/18 07:09 ALT 23 U/L (9-52) 07/02/18 07:09 Alkaline Phosphatase 64 U/L (38-126) 07/02/18 07:09 Total Creatine Kinase 82 U/L (30-135) 06/30/18 22:42 CK-MB (Mass) 1.64 ng/mL (0.0-3.38) 06/30/18 22:42 Troponin I < 0.0120 ng/mL (0.00-0.120) 06/30/18 22:42 Total Protein 7.3 g/dL (6.3-8.3) 07/02/18 07:09 Albumin 4.4 g/dL (3.5-5.0) 07/02/18 07:09 Globulin 3.0 gm/dL (2.2-3.9) 07/02/18 07:09 Albumin/Globulin Ratio 1.5 (1.0-2.1) 07/02/18 07:09 Triglycerides 93 mg/dL (0-149) 07/01/18 06:34 Cholesterol 202 mg/dL (0-199) H 07/01/18 06:34 LDL Cholesterol Direct 92 mg/dL (0-129) 07/01/18 06:34 HDL Cholesterol 78 mg/dL (30-70) H 07/01/18 06:34 Lipase 47 U/L (23-300) 06/30/18 10:43 Free T4 1.32 ng/dL (0.78-2.19) 07/01/18 06:34 TSH 3rd Generation 0.03 mIU/L (0.46-4.68) L 07/01/18 13:47 Urine Color Yellow (YELLOW) 06/30/18 10:43 Urine Clarity Hazy (Clear) 06/30/18 10:43 Urine pH 5.0 (5.0-8.0) 06/30/18 10:43 Ur Specific [place] 1.038 (1.003-1.030) H 06/30/18 10:43 Urine Protein 1+ mg/dL (NEGATIVE) H 06/30/18 10:43 Urine Glucose (UA) 3+ mg/dL (Normal) H 06/30/18 10:43 Urine Ketones 1+ mg/dL (NEGATIVE) H 06/30/18 10:43 Urine Blood 1+ (NEGATIVE) H 06/30/18 10:43 Urine Nitrate Negative (NEGATIVE) 06/30/18 10:43 Urine Bilirubin Negative (NEGATIVE) 06/30/18 10:43 Urine Urobilinogen Normal mg/dL (0.2-1.0) 06/30/18 10:43 Ur Leukocyte Esterase Neg Vargas/uL (Negative) 06/30/18 10:43 Urine WBC (Auto) 1 /hpf (0-5) 06/30/18 10:43 Urine RBC (Auto) 1 /hpf (0-3) 06/30/18 10:43 Ur Squamous Epith Cells 6 /hpf (0-5) H 06/30/18 10:43 Urine Bacteria Rare (<OCC) 06/30/18 10:43 Urine Opiates Screen Positive (NEGATIVE) H 06/30/18 17:33 Urine Methadone Screen Negative (NEGATIVE) 06/30/18 17:33 Ur Barbiturates Screen Negative (NEGATIVE) 06/30/18 17:33 Ur Phencyclidine Scrn Negative (NEGATIVE) 06/30/18 17:33 Ur Amphetamines Screen Negative (NEGATIVE) 06/30/18 17:33 U Benzodiazepines Scrn Negative (NEGATIVE) 06/30/18 17:33 U Oth Cocaine Metabols Positive (NEGATIVE) H 06/30/18 17:33 U Cannabinoids Screen Negative (NEGATIVE) 06/30/18 17:33 - Hospital Course Hospital Course: 72 year old female with past medical history of bowel resection and diabetes presents to the ER for abdominal pain. Patient states the pain started about 3 days ago in her LLQ and it is constant. She states she has not had a bowel movement for the past 3 days. She denies radiation of the pain but states it is severe and nothing makes the pain better or worse. She states she feels nauseated and has vomited. She also states she fell about [address] She states she felt unsteady on her feet and fell and hit her knee. She stated a lady on the street helped her up but she did not seek medical care at the time. She denies chest pain, shortness of breath, difficulty breathing, headache, diarrhea, fever or chills. 72F was admitted into the ER for complaints of abdominal pain, nausea, vomiting , and constipation. While in the CT room for abd/pelv CT, a rapid response was called for a syncopal episode. No acute abnormalities were found from the rapid response, other than being positive for constipation. CT Abd/Pelv w/ IV contrast was performed (06/30/18) and showed: "a large amount of stool seen just distal to the anastomosis, consistent with fecal retention/constipation" (see full report). Head CT (06/30/18) was performed and showed no acute hemorrhage, EKG (06/30/18) showed normal sinus, with prolonged QT and Carotid doppler showed normal finding (see full reports). F/U EKG showed no abnormalities (see full report). Neurology was consulted (Dr. Garcia) due to change in mental status and syncope: "non-focal neuro exam, continued cardiac work-up recommended" Surgery was consulted (Dr. Osorio): "no surgical invention at this time." GI was consulted (Dr. Adorno): "continue bowel regimen, f/u colonoscopy as outpatient, recommend psych consult for cocaine abuse." UA c/x from admission showed Klebsiella pneumoniae ssp pneu, sensitive to ciprofloxacin. Patient was given fleet enema/Miralax and had multiple bowel movements since admission and has much improvement of her symptoms. Patient is stable and in no acute pain or distress. Patient cleared for discharge with Abx. Below are the instructions provided to the patient upon discharge: Patient is stable for discharge per Dr. Pena. Patient should fill the following prescriptions and start taking the medication: Ciprofloxacin 500 mg two times a day (8Am & 8PM) Lisinopril 2.5 mg one time a day (8AM) Patient should also eat yogurt with probiotics twice a day while she is on the antibiotics (ciproflaoxacin). Patient should also resume their home insulin regimen and other home medications. Patient should follow up with their primary doctor in about two weeks. If patient does not have a primary doctor, patient may follow up in the [facility]. If the symptoms do not resolve or worsen, patient should return to their nearest emergency medical facility. Thank you and take care. Discharge Exam - Head Exam Head Exam: ATRAUMATIC, NORMOCEPHALIC - Eye Exam Eye Exam: EOMI, Normal appearance, PERRL Pupil Exam: NORMAL ACCOMODATION - Respiratory Exam Respiratory Exam: NORMAL BREATHING PATTERN, UNREMARKABLE. absent: Rales, Rhonchi, Wheezes - Cardiovascular Exam Cardiovascular Exam: +S1, +S2, Systolic Murmur. absent: Irregular Rhythm - GI/Abdominal Exam GI & Abdominal Exam: Normal Bowel Sounds. absent: Distended, Firm, Rigid - Extremities Exam Additional comments: no calf tenderness, no pedal edema. - Neurological Exam Neurological exam: Alert, Normal Gait, Oriented x3 - Psychiatric Exam Psychiatric exam: Anxious - Skin Skin Exam: Dry, Intact, Normal Color, Warm Discharge Plan - Discharge Medications Prescriptions: Ciprofloxacin [Cipro] 500 mg PO BID #14 tab Lisinopril [Zestril] 2.5 mg PO DAILY #30 tab - Follow Up Plan Condition: FAIR Disposition: HOME/ ROUTINE Instructions: Ciprofloxacin and Dexamethasone, Urinary Tract Infection in Women (DC), Acute Abdominal Pain (DC) Additional Instructions: Patient is stable for discharge per Dr. Pena. Patient should fill the following prescriptions and start taking the medication: Ciprofloxacin 500 mg two times a day (8Am & 8PM) Lisinopril 2.5 mg one time a day (8AM) Patient should also eat yogurt with probiotics twice a day while she is on the antibiotics (ciproflaoxacin). Patient should also resume their home insulin regimen and other home medications. Patient should follow up with their primary doctor in about two weeks. If patient does not have a primary doctor, patient may follow up in the [facility]. If the symptoms do not resolve or worsen, patient should return to their nearest emergency medical facility. Thank you and take care. Referrals: Jackson Pena DO [Staff Provider] - <Jackson Pena - Last Filed: 07/03/18 08:15> Provider - Provider Date of Admission: 06/30/18 13:59 Attending physician: Jackson Pena DO Hospital Course - Lab Results Lab Results: Micro Results 06/30/18 10:43 Urine Urine Culture - Final Klebsiella Pneumoniae Ssp Pneu Most Recent Lab Values WBC 6.2 K/uL (4.8-10.8) 07/02/18 07:09 RBC 4.09 Mil/uL (3.80-5.20) 07/02/18 07:09 Hgb 13.2 g/dL (11.0-16.0) 07/02/18 07:09 Hct 37.9 % (34.0-47.0) 07/02/18 07:09 MCV 92.8 fL (81.0-99.0) 07/02/18 07:09 MCH 32.3 pg (27.0-31.0) H 07/02/18 07:09 MCHC 34.8 g/dL (33.0-37.0) 07/02/18 07:09 RDW 13.1 % (11.5-14.5) 07/02/18 07:09 Plt Count 320 K/uL (130-400) 07/02/18 07:09 MPV 9.5 fL (7.2-11.7) 07/02/18 07:09 Neut % (Auto) 81.4 % (50.0-75.0) H 07/02/18 07:09 Lymph % (Auto) 14.0 % (20.0-40.0) L 07/02/18 07:09 [place] % (Auto) 2.8 % (0.0-10.0) 07/02/18 07:09 Eos % (Auto) 0.4 % (0.0-4.0) 07/02/18 07:09 Baso % (Auto) 1.4 % (0.0-2.0) 07/02/18 07:09 Neut # (Auto) 5.1 K/uL (1.8-7.0) 07/02/18 07:09 Lymph # (Auto) 0.9 K/uL (1.0-4.3) L 07/02/18 07:09 [place] # (Auto) 0.2 K/uL (0.0-0.8) 07/02/18 07:09 Eos # (Auto) 0.0 K/uL (0.0-0.7) 07/02/18 07:09 Baso # (Auto) 0.1 K/uL (0.0-0.2) 07/02/18 07:09 PT 10.7 SECONDS (9.7-12.2) 06/30/18 10:43 INR 1.0 09/02/18 10:43 APTT 26 SECONDS (21-34) 06/30/18 10:43 Sodium 139 mmol/L (132-148) 07/02/18 07:09 Potassium 3.7 mmol/L (3.6-5.2) 07/02/18 07:09 Chloride 104 mmol/L (98-107) 07/02/18 07:09 Carbon Dioxide 18 mmol/L (22-30) L 07/02/18 07:09 Anion Gap 21 (10-20) H 07/02/18 07:09 BUN 11 mg/dL (7-17) 07/02/18 07:09 Creatinine 0.5 mg/dL (0.7-1.2) L 07/02/18 07:09 Est GFR ( Amer) > 60 07/02/18 07:09 Est GFR (Non-Af Amer) > 60 07/02/18 07:09 POC Glucose (mg/dL) 185 mg/dL (65-110) H 07/02/18 16:26 Random Glucose 138 mg/dL (65-105) H 07/02/18 07:09 Hemoglobin A1c 10.8 % (4.2-6.5) H 07/01/18 06:34 Lactic Acid 0.9 mmol/L (0.7-2.1) 06/30/18 10:47 Calcium 9.0 mg/dl (8.6-10.4) 07/02/18 07:09 Phosphorus 3.4 mg/dL (2.5-4.5) 07/02/18 07:09 Magnesium 1.8 mg/dL (1.6-2.3) 07/02/18 07:09 Total Bilirubin 0.5 mg/dL (0.2-1.3) 07/02/18 07:09 AST 24 U/L (14-36) 07/02/18 07:09 ALT 23 U/L (9-52) 07/02/18 07:09 Alkaline Phosphatase 64 U/L (38-126) 07/02/18 07:09 Total Creatine Kinase 82 U/L (30-135) 06/30/18 22:42 CK-MB (Mass) 1.64 ng/mL (0.0-3.38) 06/30/18 22:42 Troponin I < 0.0120 ng/mL (0.00-0.120) 06/30/18 22:42 Total Protein 7.3 g/dL (6.3-8.3) 07/02/18 07:09 Albumin 4.4 g/dL (3.5-5.0) 07/02/18 07:09 Globulin 3.0 gm/dL (2.2-3.9) 07/02/18 07:09 Albumin/Globulin Ratio 1.5 (1.0-2.1) 07/02/18 07:09 Triglycerides 93 mg/dL (0-149) 07/01/18 06:34 Cholesterol 202 mg/dL (0-199) H 07/01/18 06:34 LDL Cholesterol Direct 92 mg/dL (0-129) 07/01/18 06:34 HDL Cholesterol 78 mg/dL (30-70) H 07/01/18 06:34 Lipase 47 U/L (23-300) 06/30/18 10:43 Free T4 1.32 ng/dL (0.78-2.19) 07/01/18 06:34 TSH 3rd Generation 0.03 mIU/L (0.46-4.68) L 07/01/18 13:47 Urine Color Yellow (YELLOW) 06/30/18 10:43 Urine Clarity Hazy (Clear) 06/30/18 10:43 Urine pH 5.0 (5.0-8.0) 06/30/18 10:43 Ur Specific [place] 1.038 (1.003-1.030) H 06/30/18 10:43 Urine Protein 1+ mg/dL (NEGATIVE) H 06/30/18 10:43 Urine Glucose (UA) 3+ mg/dL (Normal) H 06/30/18 10:43 Urine Ketones 1+ mg/dL (NEGATIVE) H 06/30/18 10:43 Urine Blood 1+ (NEGATIVE) H 06/30/18 10:43 Urine Nitrate Negative (NEGATIVE) 06/30/18 10:43 Urine Bilirubin Negative (NEGATIVE) 06/30/18 10:43 Urine Urobilinogen Normal mg/dL (0.2-1.0) 06/30/18 10:43 Ur Leukocyte Esterase Neg Vargas/uL (Negative) 06/30/18 10:43 Urine WBC (Auto) 1 /hpf (0-5) 06/30/18 10:43 Urine RBC (Auto) 1 /hpf (0-3) 06/30/18 10:43 Ur Squamous Epith Cells 6 /hpf (0-5) H 06/30/18 10:43 Urine Bacteria Rare (<OCC) 06/30/18 10:43 Urine Opiates Screen Positive (NEGATIVE) H 06/30/18 17:33 Urine Methadone Screen Negative (NEGATIVE) 06/30/18 17:33 Ur Barbiturates Screen Negative (NEGATIVE) 06/30/18 17:33 Ur Phencyclidine Scrn Negative (NEGATIVE) 06/30/18 17:33 Ur Amphetamines Screen Negative (NEGATIVE) 06/30/18 17:33 U Benzodiazepines Scrn Negative (NEGATIVE) 06/30/18 17:33 U Oth Cocaine Metabols Positive (NEGATIVE) H 06/30/18 17:33 U Cannabinoids Screen Negative (NEGATIVE) 06/30/18 17:33 Attending/Attestation - Attestation I have personally seen and examined this patient.: Yes I have fully participated in the care of the patient.: Yes I have reviewed all pertinent clinical information, including history, physical exam and plan: Yes Notes (Text): 07/03/18 08:11 Medical attending: Patient was seen and examined by me. Agree with the above note by the resident The patient was not in any acute distress when we walked into the room yet after we began talking to her for a while she then had a multitude of complaints. We advised her that she needs to stop taking the cocaine and this conversation did not go well with the patient The patient also should take PO abx for UTI as well. Jackson Pena
--- NOTE | 2018-07-02 15:53 | CARD ---
APPROVED REPORT Date of service: 06/30/2018 EKG Measurement Heart [id number] <Conclusion> Normal sinus rhythm Nonspecific T wave abnormality Prolonged QT Abnormal ECG
--- NOTE | 2018-07-02 15:56 | CARD ---
APPROVED REPORT Date of service: 06/30/2018 EKG Measurement Heart [id number] <Conclusion> Normal sinus rhythm Normal ECG
[2018-07-02 16:06] VITALS: BP 152/65; PULSE 97; RESP 20; TEMP 99; O2SAT 97
--- NOTE | 2018-07-03 08:18 | CARD ---
APPROVED REPORT Date of service: 07/02/2018 EXAM: Two-dimensional and M-mode echocardiogram with Doppler and color Doppler. Other Information Quality : GoodRhythm : INDICATION Dizziness and Vertigo Syncope 2D DIMENSIONS IVSd1.0 (0.7-1.1cm)Aortic Root (2D)2.4 (2.0-3.7cm) LVDd3.8 (3.9-5.9cm)LVOT Diameter2.0 (1.8-2.4cm) PWd1.1 (0.7-1.1cm)LVDs2.5 (2.5-4.0cm) FS (%) 33.3 %LVEF (%)62.7 (>50%) M-Mode DIMENSIONS RVDd2.28 (2.1-3.2cm)Left Atrium (MM)3.41 (2.5-4.0cm) IVSd0.91 (0.7-1.1cm)Aortic Root2.87 (2.2-3.7cm) LVDd4.34 (4.0-5.6cm)Aortic Cusp Exc.1.43 (1.5-2.0cm) PWd0.76 (0.7-1.1cm)FS (%) 44 % LVDs2.43 (2.0-3.8cm)TAPSE18.52 cm LVEF (%)76 (>50%) Aortic Valve AoV Peak Bcivlcbt316.2cm/sAoV VTI51.6cmAO Peak GR.30mmHg LVOT Peak Pxqhvnpd772.6cm/sLVOT VTI26.01cmAO Mean GR.14mmHg BRENDON (VMAX)1.51zy8KOH (VTI)1.54cm2 Mitral Valve MV E Doevwxzc75.4cm/sMV A Dvftygyz983.0cm/sE/A ratio0.6 TDI E/Lateral E'0.0E/Medial E'0.0 Tricuspid Valve TR Peak Mydnkzke034sz/sTR Peak Gr.10rpCgJUDA97msFb <Conclusion> Left ventricle: thickness: normal; size: normal; overall ejection fraction: 65%: diastolic filling pressures: normal Mitral valve: annulus: normal: leaflets: normal: excursion: normal; no significant trans-mitral gradient: no significant incompetence: left atrium: normal Aortic valve: leaflets:mild calcific thickening: excursion: normal;30mmHg trans-aortic gradient: No significant incompetence: AV area 1.5ma3razfnt root: normal Right sided Structures: Pulmonary valve: normal; no significant incompetence; Tricuspid valve: normal; no significant incompetence: Intra-cardiac hemodynamics: pulmonary systolic pressures: normal; central venous pressures: normal No pericardial effusion
--- NOTE | 2018-07-03 13:07 | VASCLAB ---
Date of service: 07/02/2018 PROCEDURE: HISTORY: dizziness COMPARISON: None available. TECHNIQUE: Grayscale and duplex Doppler evaluation of the cervical carotid and vertebral arteries were performed. The common carotid, carotid bifurcations and cervical Internal Carotid Artery (ICA) and proximal External Carotid Artery (ECA) were evaluated. The vertebral arteries were evaluated for gross patency and flow direction. Report prepared by FLORY Quick FINDINGS: RIGHT CAROTID ARTERIES: 1. Common Carotid Artery: No significant focal plaque formation of the right common carotid artery. Maximum Peak Systolic velocity: 67 cm/sec: End-diastolic velocity 11 cm/sec. 2. Carotid Bifurcation: plaque formation. Maximum Peak Systolic velocity: 50 cm/sec: End-diastolic velocity 9 cm/sec. 3. Internal Carotid Artery: Plaque description: 3.1. Proximal Segment: Peak systolic velocity 61 cm/sec: End-diastolic velocity 18 cm/sec - % stenosis 0-15% 3.2. Middle Segment: Peak systolic velocity 74 cm/sec: End-diastolic velocity 21 cm/sec - % stenosis 0-15% 3.3. Distal Segment: Peak systolic velocity 77 cm/sec: End-diastolic velocity 22 cm/sec - % stenosis 0-15% 4. External Carotid Artery: No significant focal plaque formation. Peak systolic velocity 106 cm/sec 5. ICA/CCA Ratio: 1.1 LEFT CAROTID ARTERIES: 1. Common Carotid Artery: No significant focal plaque formation of the left common carotid artery. Maximum Peak Systolic velocity: 68 cm/sec: End-diastolic velocity 10 cm/sec. 2. Carotid Bifurcation: plaque formation. Maximum Peak Systolic velocity: 71 cm/sec: End-diastolic velocity 8 cm/sec. 3. Internal Carotid Artery: Plaque description: 3.1. Proximal Segment: Peak systolic velocity 53 cm/sec: End-diastolic velocity 13 cm/sec - % stenosis 0-15% 3.2. Middle Segment: Peak systolic velocity 57 cm/sec: End-diastolic velocity 17 cm/sec - % stenosis 0-15% 3.3. Distal Segment: Peak systolic velocity 75 cm/sec: End-diastolic velocity 24 cm/sec - % stenosis 0-15% 4. External Carotid Artery: No significant focal plaque formation. Peak systolic velocity 143 cm/sec 5. ICA/CCA Ratio: 1.1 VERTEBRAL ARTERIES: 1. Right Vertebral Artery: The right vertebral artery flow direction is antegrade. 2. Left Vertebral Artery: The left vertebral artery flow direction is antegrade. OTHER FINDINGS: 1. Right Brachial Blood pressure: 100 mmHg. 2. Left Brachial Blood pressure: 80 mmHg. IMPRESSION: RIGHT: Duplex scan does not suggest hemodynamically significant stenosis of the right extracranial carotid arteries. LEFT: Duplex scan does not suggest hemodynamically significant stenosis of the left extracranial carotid arteries.
--- NOTE | 2018-07-03 16:20 | CARD ---
APPROVED REPORT Date of service: 06/30/2018 EKG Measurement Heart [id number] <Conclusion> Normal sinus rhythm Normal ECG
== END 2018-07-02 18:20 | disposition home or self-care (01) ==
LOC: C.ER 09:55 → C.9E 13:59 → C.6T 14:52
PROVIDERS: ADMIT Hospitalist; ATTEND Hospitalist
DX: K56.41 Fecal impaction (principal); Z79.4 Long term (current) use of insulin; K29.70 Gastritis, unspecified, without bleeding; I10 Essential (primary) hypertension; Z91.81 History of falling; F14.10 Cocaine abuse, uncomplicated; E78.5 Hyperlipidemia, unspecified; E11.9 Type 2 diabetes mellitus without complications
CPT/HCPCS: 36415; 70450; 74177; 80053; 80061; 81001; 82948; 83036; 83605; 83690; 83735; 84100; 84439; 84443; 84484; 85025; 85610; 85730; 87086; 87181; 93005; 93306; 93880; 96360; 96374; 97162; 97530; 99285; C9113; G0378; G0480; G8978; G8979; J1885; J2270; J2405; J7030; Q9967

== ENCOUNTER 2018-10-14 15:18 | Emergency (ER) | payer MEDICARE ==
--- NOTE | 2018-10-14 16:32 | C.PDOC ---
History Of Present Illness 72yo female come in for evaluation of RUQ, momo-umbilical pain gradually developed since last night. Pt reports, ramin is constant,m worse today AM, (+) nausea. Pt denies high fever, chills, recent illness, CP, SOB, dyspnea, palpitation, vomiting, diarrhea, back pain, UTI sx. PMD: Dr. Ashley - patient states she has not seen her PMD in years Past Medical History: Diabetes Past Surgical History: subtotal colectomy [facility] 2016 (patient states she does not know why she underwent that surgery); cholecystectomy Medications: Novolog 10units; Levemir 15 units HS - patient states her she gets her medications from her PMD Allergies: Morphine - she states the medication is strong Time Seen by Provider: 10/14/18 16:14 Chief Complaint (Nursing): Abdominal Pain History Per: Patient Past Medical History Reviewed: Historical Data, Nursing Documentation, Vital Signs Vital Signs: Last Vital Signs Temp 98.8 F 10/14/18 15:26 Pulse 98 H 10/14/18 15:26 Resp 16 10/14/18 15:26 BP 142/79 10/14/18 15:26 Pulse Ox 98 10/14/18 15:26 - Medical History PMH: Anxiety, Depression, Diabetes (type II), Gall Bladder Disease, HTN, Hypercholesterolemia Surgical History: Cholecystectomy Family History: States: Unknown Family Hx - Social History Hx Tobacco Use: No Hx Alcohol Use: No Hx Substance Use: No - Immunization History Hx Influenza Vaccination: Yes Hx Pneumococcal Vaccination: Yes Review Of Systems Except As Marked, All Systems Reviewed And Found Negative. Constitutional: Negative for: Fever, Chills Eyes: Negative for: Vision Change ENT: Negative for: Nose Discharge Cardiovascular: Negative for: Chest Pain, Palpitations Respiratory: Negative for: Cough, Shortness of Breath, Wheezing Gastrointestinal: Positive for: Nausea, Abdominal Pain. Negative for: Vomiting, Diarrhea, Hematochezia, Hematemesis Musculoskeletal: Negative for: Neck Pain Skin: Negative for: Rash Neurological: Negative for: Altered Mental Status Physical Exam - Physical Exam Appears: Well, Non-toxic, No Acute Distress Skin: Normal Color, Warm, No Rash Head: Normacephalic Eye(s): bilateral: PERRL Nose: No Discharge Oral Mucosa: Moist Throat: No Erythema Neck: Supple Cardiovascular: Rhythm Regular, No Murmur, No JVD Respiratory: No Decreased Breath Sounds, No Accessory Muscle Use, No Stridor, No Wheezing Gastrointestinal/Abdominal: Soft, Tenderness (momo-umbilical tenderness, RUQ tenderness, mild), No Distention (mild), No Guarding, No Rebound Back: No CVA Tenderness Extremity: Normal ROM, No Swelling Neurological/Psych: Oriented x3, Normal Speech ED Course And Treatment - Laboratory Results Result Diagrams: 10/14/18 17:06 10/14/18 17:06 Lab Interpretation: No Changes Compared To Prior Results O2 Sat by Pulse Oximetry: 98 Pulse Ox Interpretation: Normal - CT Scan/US CT A/P Other Rad Studies (CT/US): Radiology Report Reviewed CT/US Interpretation: reator : Mayo Mckeon MD. Dictator : Mayo Mckeon MD. Railroad Wheels And Axle Inspector : Pre K Lead Teacher : Mayo Mckeon MD. Approver2 : Report Date : 10/14/2018 18:30:28. My Comment : . Date of service: 10/14/2018. PROCEDURE: CT Abdomen and Pelvis with contrast. HISTORY: abd pain. COMPARISON: None. TECHNIQUE: Contrast dose: 100 cc of Omni 300. Radiation dose: Total exam DLP = 202.02 mGy-cm. This CT exam was performed using one or more of the following dose reduction techniques: Automated exposure control, adjustment of the mA and/or kV according to patient size, and/or use of iterative reconstruction technique. FINDINGS: LOWER THORAX: Unremarkable. LIVER: Unremarkable. No gross lesion or ductal dilatation. GALLBLADDER AND BILE DUCTS: Gallbladder removed. PANCREAS: Unremarkable. No gross lesion or ductal dilatation. SPLEEN: Unremarkable. ADRENALS: Unremarkable. No mass. KIDNEYS AND URETERS: Unremarkable. No hydronephrosis. No solid mass. VASCULATURE: Unremarkable. No aortic aneurysm. Aortic calcifications are seen. BOWEL: Unremarkable. No obstruction. No gross mural thickening. Moderate constipation right-sided colon. APPENDIX: Normal appendix. PERITONEUM: Unremarkable. No free fluid. No free air. LYMPH NODES: Unremarkable. No enlarged lymph nodes. BLADDER: Unremarkable. REPRODUCTIVE: Unremarkable. BONES: Disc degeneration at L4-5. OTHER FINDINGS: None. IMPRESSION: No acute intra-abdominal findings Progress Note: Pt remained stable during the ED evaluation. Pt was OBS in ED for 3 hours and remained stable. on re-eval, pt reports mod improvement in sx. Afebrile, hemodynamicaly stable. non-toxic. Abd: benign, (-) guarding, (-) rebound. back: (-) CVA tenderness. Blood work review, mild hyperglycemia noted otherwise, no acute changes compare to previous study. CT A/P results review, no acute abnoramlities noted, mod constipation. results review and discussed with pt. Pt has clinical findings c/w constipation. Pt advised. ref. to f/u with PMD, GI in 2-3 dyas for re-eavl. return if any new changes. Disposition Counseled Patient/Family Regarding: Studies Performed, Diagnosis, Need For Followup, Rx Given - Disposition Referrals: Dion Thurman MD [Medical Doctor] - Disposition: HOME/ ROUTINE Disposition Time: 18:41 Condition: STABLE Additional Instructions: Encourage fluids Take Diabetic medication as prescribed Take medication as prescribed Follow up with PMD, GI in 2-3 days for re-evaluation. return to Ed if any worsening or new changes. Prescriptions: Bisacodyl [Dulcolax] 5 mg PO DAILY #30 tablet. Polyethylene Glycol 3350 [Miralax] 17 gm PO DAILY #1 bottle Instructions: Constipation in Adults Forms: [facility] (Frisian) Print Language: SOMALI - Clinical Impression Clinical Impression: Constipation
[2018-10-14] MEDS ORDERED: Sodium Chloride 0.9% 1,000 ML IV ONE (16:33)
[2018-10-14] MEDS ORDERED: Sodium Chloride 0.9% 1,000 ML ONE (16:55)
[2018-10-14 17:09] LABS: BASO % 0.7 % (0.0-2.0); EOS # 0.5 K/uL (0.0-0.7); EOS % 10.5 % (0.0-4.0); HEMOGLOBIN 14.7 g/dL (11.0-16.0); LYMPH # 1.1 K/uL (1.0-4.3); LYMPH % 23.8 % (20.0-40.0); MEAN CELL VOLUME 93.1 fL (81.0-99.0); MEAN CORPUSCULAR HEMOGLOBIN 31.9 pg (27.0-31.0); MEAN CORPUSCULAR HGB CONC 34.3 g/dL (33.0-37.0); MEAN PLATELET VOLUME 8.9 fL (7.2-11.7); MONO # 0.2 K/uL (0.0-0.8); MONO % 4.9 % (0.0-10.0); NEUT # 2.7 K/uL (1.8-7.0); NEUT % 60.1 % (50.0-75.0); NRBC % 0.1 % (0.0-2.0); RBC 4.6 Mil/uL (3.80-5.20); RED CELL DISTRIBUTION WIDTH 12.8 % (11.5-14.5); WHITE BLOOD COUNT 4.6 K/uL (4.8-10.8)
[2018-10-14 17:22] LABS: INR 0.9; PROTHROMBIN TIME 10.3 SECONDS (9.7-12.2)
[2018-10-14 17:28] LABS: ALB/GLOB RATIO 1.4 (1.0-2.1); ALBUMIN 4.6 g/dL (3.5-5.0); AMYLASE 48 U/L (30-110); BLOOD UREA NITROGEN 14 mg/dL (7-17); CALCIUM 9.3 mg/dl (8.6-10.4); GFR NON-AFRICAN AMERICAN > 60; LIPASE 50 U/L (23-300)
[2018-10-14 17:30] LABS: ALT/SGPT 17 U/L (9-52); AST/SGOT 24 U/L (14-36)
[2018-10-14 17:55] LABS: SQUAMOUS EPITHIAL 3 /hpf (0-5); URINE BILIRUBIN NEGATIVE (NEGATIVE); URINE BLOOD NEGATIVE (NEGATIVE); URINE CLARITY Clear (Clear); URINE COLOR Yellow (YELLOW); URINE GLUCOSE (UA) 3+ mg/dL (Normal); URINE LEUKOCYTE ESTERASE NEG Leu/uL (Negative); URINE PROTEIN NEGATIVE (NEGATIVE); URINE UROBILINOGEN NORMAL mg/dL (0.2-1.0)
--- NOTE | 2018-10-14 18:33 | CT ---
Date of service: 10/14/2018 PROCEDURE: CT Abdomen and Pelvis with contrast HISTORY: abd pain COMPARISON: None. TECHNIQUE: Contrast dose: 100 cc of Omni 300 Radiation dose: Total exam DLP = 202.02 mGy-cm. This CT exam was performed using one or more of the following dose reduction techniques: Automated exposure control, adjustment of the mA and/or kV according to patient size, and/or use of iterative reconstruction technique. FINDINGS: LOWER THORAX: Unremarkable. LIVER: Unremarkable. No gross lesion or ductal dilatation. GALLBLADDER AND BILE DUCTS: Gallbladder removed PANCREAS: Unremarkable. No gross lesion or ductal dilatation. SPLEEN: Unremarkable. ADRENALS: Unremarkable. No mass. KIDNEYS AND URETERS: Unremarkable. No hydronephrosis. No solid mass. VASCULATURE: Unremarkable. No aortic aneurysm. Aortic calcifications are seen BOWEL: Unremarkable. No obstruction. No gross mural thickening. Moderate constipation right-sided colon APPENDIX: Normal appendix. PERITONEUM: Unremarkable. No free fluid. No free air. LYMPH NODES: Unremarkable. No enlarged lymph nodes. BLADDER: Unremarkable. REPRODUCTIVE: Unremarkable. BONES: Disc degeneration at L4-5 OTHER FINDINGS: None. IMPRESSION: No acute intra-abdominal findings
[2018-10-14] MEDS ORDERED: Iohexol 300 100 ML IJ ONE (18:37)
[2018-10-14 19:53] VITALS: BP 148/81; PULSE 78; RESP 18; TEMP 98; O2SAT 100
== END 2018-10-14 19:53 | disposition home or self-care (01) ==
LOC: C.ER 15:18
DX: K59.00 Constipation, unspecified (principal)
CPT/HCPCS: 74177; 80053; 81001; 82150; 83690; 85025; 85610; 85730; 96374; 96375; 99285; J1885; J2405; J7030; Q9967